=== PATIENT | female | born 1955 | race Caucasian/White ===

== ENCOUNTER → 2016-07-04 | Outpatient (CLI) | payer OTHER ==
--- NOTE | 2016-07-08 09:04 | MM ---
Reason for exam: screening (asymptomatic). Last mammogram was performed 1 year and 10 months ago. History: Patient is postmenopausal and is nulliparous. Benign left mammotome panel of the left breast, July 07, 2009. Physical Findings: A clinical breast exam by your physician is recommended on an annual basis and results should be correlated with mammographic findings. MG Screening Mammo w CAD Bilateral CC and MLO view(s) were taken. Prior study comparison: August 31, 2014, bilateral MG screening mammo w CAD. December 17, 2011, bilateral digital screening mammo w/CAD. There are scattered fibroglandular densities. Previous mammotome biopsy in the left breast. No significant changes when compared with prior studies. ASSESSMENT: Benign, BI-RAD 2 RECOMMENDATION: Routine screening mammogram of both breasts in 1 year.
== END ==
LOC: RADMAMWWP 14:33
PROVIDERS: ATTEND Family Medicine
DX: Z12.31 Encounter for screening mammogram for malignant neoplasm of breast (principal)

== ENCOUNTER → 2018-08-07 | Outpatient (CLI) | payer OTHER ==
[2018-08-07 08:36] LABS: HCT 40.3 % (34.0-46.0); HGB 13.3 gm/dL (11.4-16.0); MCH 27.7 pg (25.0-35.0); MCHC 33.1 g/dL (31.0-37.0); MCV 83.7 fL (80.0-100.0); Mean Platelet Volume 8.7; Platelet Count 239 k/uL (150-450); RBC 4.81 m/uL (3.80-5.40); RDW 14.4 % (11.5-15.5); WBC 7.3 k/uL (3.8-10.6)
--- NOTE | 2018-08-07 11:42 | XR ---
EXAMINATION TYPE: XR bone survey complete DATE OF EXAM: 08/07/2018 COMPARISON: None HISTORY: D 68.312, D 68.69, M12.9, J 45.909 2 views of the skull, frontal lateral views of the spine, frontal view of the chest, single views of the upper and lower proximal extremities, frontal view of the pelvis submitted. Degenerative disc changes are present in the visualized spine. There is no lytic or sclerotic focus s een within the images submitted. Bone mineralization may be mildly reduced. Facet arthropathy changes also noted in the cervical and lumbar spine. Chest x-ray shows a borderline increased cardiac size. IMPRESSION: No acute abnormality. Borderline cardiac size which may be accentuated by technique.
[2018-08-07 16:17] LABS: Albumin 4.5 g/dL (3.80-4.90); Albumin/Globulin Ratio 2.14 (1.60-3.17); Anion Gap 9.2 mmol/L (4.00-12.00); Calcium 9.5 mg/dL (8.7-10.3); Carbon Dioxide 28.8 mmol/L (21.6-31.8); Globulin 2.1 g/dL (1.6-3.3); LDL Cholesterol,Calculated 75.4 mg/dL (0.0-131.0); Potassium 4.6 mmol/L (3.5-5.5); Total Bilirubin 0.6 mg/dL (0.2-1.2); Total Protein 6.6 g/dL (6.2-8.2); VLDL Calculation 14.6 mg/dL (5.00-40.00)
[2018-08-07 16:27] LABS: Hepatitis C IgG Antibody Non-Reactive (Non-Reactive)
[2018-08-07 18:07] LABS: Hemoglobin A1C 5.2 % (4.0-6.0)
== END | disposition home or self-care (01) ==
LOC: LABWHC1 07:43
PROVIDERS: ATTEND Family Medicine
DX: D68.312 Antiphospholipid antibody with hemorrhagic disorder (principal); D68.69 Other thrombophilia; M12.9 Arthropathy, unspecified; J45.909 Unspecified asthma, uncomplicated; Z79.899 Other long term (current) drug therapy; Z11.59 Encounter for screening for other viral diseases; Z00.00 Encounter for general adult medical examination without abnormal findings
CPT/HCPCS: 36415; 77075; 80053; 80061; 82306; 82550; 83036; 84443; 85027; 86803

== ENCOUNTER → 2018-08-17 | Outpatient (CLI) | payer OTHER ==
--- NOTE | 2018-08-17 18:52 | BD ---
EXAMINATION TYPE: Axial Bone Density DATE OF EXAM: 08/17/2018 COMPARISON: 11/02/2003 CLINICAL HISTORY: 63-year-old female asymptomatic postmenopausal screening Height: 60.5 IN Weight: 190 LBS RISK FACTORS HISTORY OF: Active: YES Postmenopausal woman: AGE 44 MEDICATIONS: Additional Medications: MULTIVITAMIN, ADVAIR, ZYRTEC, TEDDY ASPIRIN,SINGULAIR EXAM MEASUREMENTS: Bone mineral densitometry was performed using the [employer] System. Bone mineral density as measured about the Lumbar spine is: ----- L1-L4(G/cm2): 1.214 T Score Values are as follows: ----- L2: -0.3 ----- L3: 0.8 ----- L4: 0.5 ----- L1-L4: 0.3 Bone mineral density has: Decreased -11.7% since study of: 11/02/2003 Bone mineral density about the R hip (g/cm2): 0.814 Bone mineral density about the L hip (g/cm2): 0.853 T Score values are as follows: -----R Neck: -1.6 -----L Neck: -1.3 -----R Total: -0.9 -----L Total: -0.4 Bone mineral density has: Decreased -11.9% since study of: 11/02/2003 IMPRESSION: Osteopenia (T Score between -2.5 and -1). There is slightly increased risk of fracture and the patient may be considered for treatment. Re-Screen 2-5 years. NOTE: T-SCORE=SD OF THE YOUNG ADULT MEAN.
--- NOTE | 2018-08-19 14:38 | MM ---
Reason for exam: screening (asymptomatic). Last mammogram was performed 2 years and 1 month ago. History: Patient is postmenopausal and is nulliparous. Benign left mammotome panel of the left breast, July 07, 2009. Physical Findings: A clinical breast exam by your physician is recommended on an annual basis and results should be correlated with mammographic findings. MG Screening Mammo w CAD Bilateral CC and MLO view(s) were taken. Prior study comparison: July 04, 2016, bilateral MG screening mammo w CAD. August 31, 2014, bilateral MG screening mammo w CAD. There are scattered fibroglandular densities. Previous mammotome biopsy in the left breast. No significant changes when compared with prior studies. ASSESSMENT: Benign, BI-RAD 2 RECOMMENDATION: Routine screening mammogram of both breasts in 1 year.
== END | disposition home or self-care (01) ==
LOC: RADMAMWWP 12:22
PROVIDERS: ATTEND Family Medicine
DX: Z12.31 Encounter for screening mammogram for malignant neoplasm of breast (principal); M85.80 Other specified disorders of bone density and structure, unspecified site; Z78.0 Asymptomatic menopausal state
CPT/HCPCS: 77067; 77080

== ENCOUNTER → 2018-09-25 | Outpatient (CLI) | payer OTHER ==
--- NOTE | 2018-09-25 21:39 | MR ---
EXAMINATION TYPE: MR shoulder RT wo con DATE OF EXAM: 09/25/2018 COMPARISON: None HISTORY: Pain in right shoulder CONTRAST: Performed utilizing 0 mL intravenous Gadavist gadolinium contrast. Multiplanar, multiecho imaging on a 3.0 Claudia magnet is performed through the shoulder. Long head of the biceps tendon is within the bicipital groove. Significant joint fluid is not present. Glenoid labrum appears normal where visualized on this non joint contrast study Rotator cuff tendons are evaluated. In the coronal plane there appears to be a complete tear of the supraspinatus tendon. This may be partial without retraction. Couple of linear fibers may remain inta ct. No supraspinatus muscle atrophy is evident.. The acromioclavicular junction is hypertrophied which can contribute to impingement syndrome. IMPRESSIONS: 1. Near complete supraspinatus tear with fluid surrounding residual fibers. No retraction or muscle a trophy is evident.
== END | disposition home or self-care (01) ==
LOC: RADMRIMAIN 19:35
PROVIDERS: ATTEND Orthopaedic Surgery
DX: M75.111 Incomplete rotator cuff tear or rupture of right shoulder, not specified as traumatic (principal)

== ENCOUNTER 2018-11-25 05:58 | Day surgery (SDC) | payer OTHER ==
[2018-11-20 15:14] VITALS: BMI 35.9
--- NOTE | 2018-11-24 11:26 | HP ---
HISTORY AND PHYSICAL SURGERY SCHEDULED: 11/25/2018 Amrita Vogel is a 63-year-old patient seen with progressive right shoulder pain. After having treatment options discussed with her, she elected to proceed with right shoulder arthroscopy. Consent was obtained. PAST MEDICAL HISTORY: Asthma. PAST SURGICAL HISTORY: Breast biopsy, tubal ligation, colonoscopy. DAILY MEDICATIONS: 1. Advair. 2. Aspirin. 3. ProAir. 4. Zyrtec. ALLERGIES: KEFLEX and SULFA. SOCIAL HISTORY: She denies current tobacco use. PHYSICAL EVALUATION OF THE RIGHT SHOULDER: Flexion is 160 degrees, abduction is 160 degrees, external rotation is 50 degrees with weakness, tenderness along the anterior lateral acromion and rotator cuff insertion site. Impingement sign is positive at 90 degrees. Drop-arm sign is positive. Distal neurovascular exam is intact. RIGHT SHOULDER RADIOGRAPHS: Revealed a type 2 anterior acromion, evidence for acromioclavicular joint osteoarthritis and cystic changes of the tuberosity. A right shoulder MRI revealed rotator cuff tear. IMPRESSION: 1. Right shoulder impingement with rotator cuff tear. 2. Right shoulder acromioclavicular joint osteoarthritis. 3. Asthma. PLAN: Right shoulder arthroscopy with probable arthroscopic rotator cuff repair, subacromial decompression, probable Temo procedure and debridement. MMODL / IJN: [id number] /
[~2018-11-25 05:58] MED LIST: DEXAMETHASONE SOD PHOSPHATE 10 MG/ML 1 ML VIAL IV ONE; HYDROmorphone 0.5 MG/0.5 ML SYRINGE IVP PRN; LACTATED RINGERS 1,000 ML IV SCH; LIDOCAINE 1% 20 ML VIAL (10MG/ML) FOR IV START INTRADERMA PRN; ONDANSETRON 4 MG/2 ML VIAL IVP ONE
[2018-11-25 06:23] VITALS: TEMP 97.7
[2018-11-25] MEDS ORDERED: MIDAZOLAM (PF) 2 MG/2 ML VIAL IVP ONE (07:09)
[2018-11-25] MEDS ORDERED: fentaNYL (PF) 50 MCG/ML 2 ML AMP ONE ×2 (07:23)
[2018-11-25] MEDS ORDERED: SUCCINYLCHOLINE CHLORIDE 100 MG/5 ML SYR IV ONE ×2 (07:23)
[2018-11-25] MEDS ORDERED: LIDOCAINE 1% INJ 10MG/ML (20 ML MDV) ONE ×2 (07:23)
[2018-11-25] MEDS ORDERED: PROPOFOL 10 MG/ML 20 ML VIAL IV ONE ×2 (07:23)
[2018-11-25] MEDS ORDERED: ROPIVACAINE 5 MG/ML 30 ML VIAL ONE ×2 (07:23)
--- NOTE | 2018-11-25 09:02 | P.OP ---
Date of Procedure: 11/25/18 Preoperative Diagnosis: Right shoulder impingement Postoperative Diagnosis: 1. Right shoulder rotator cuff tear 2. Right shoulder impingement 3. Right shoulder acromioclavicular joint osteoarthritis 4. Right shoulder partial long head biceps tendon 5. Right shoulder superficial labral tear Procedure(s) Performed: 1. Right shoulder arthroscopic rotator cuff repair 2. Right shoulder arthroscopic subacromial decompression 3. Right shoulder arthroscopic Temo procedure 4. Right shoulder arthroscopic biceps tenotomy 5. Right shoulder arthroscopic debridement labral tear Implants: 1Arthrex 5.5 swivel lock anchor Anesthesia: GETA, regional (Interscalene block) Surgeon: Wolf Garcia Estimated Blood Loss (ml): 5 Pathology: none sent Condition: stable Disposition: PACU Indications for Procedure: 63-year-old patient seen with progressive right shoulder pain. After options regarding treatment were discussed, she elected to proceed with arthroscopy. Operative Findings: see description of procedure Description of Procedure: Patient underwent an interscalene block by department of anesthesia for postoperative pain management. The patient was then taken to the operative suite. The patient underwent a general anesthetic by the department of anesthesia. The patient was placed into a lateral position and secured. There was appropriate padding of the bony prominence. Right shoulder was then prepped and draped in normal sterile orthopedic fashion. We placed the extremity in 10 pounds of longitudinal traction. A posterior incision was now made for a posterior working portal site. The trocar and cannula were inserted into the glenohumeral joint. Arthroscopy was initiated. Spinal needle was now inserted anteriorly, to ascertain the anterior working portal site. An incision was now made in that area, a trocar was inserted followed by a probe. There was partial tearing long head biceps tendon. There was a superficial labral tear involving the superior labrum. The remaining labrum was stable. I performed an arthroscopic biceps tenotomy. I debrided that superficial labral tear down to stable. There is stable. Utilizing the posterior working portal site, the trocar and cannula were inserted into the subacromial space. Arthroscopy initiated. I made an incision 2 fingerbreadths lateral to the acromion. I introduced my trocar followed by my [employer]Care ablator. I now began ablating thick subacromial bursal tissue, which exposed the undersurface of the anterior acromion. There was diminished subacromial space. There was a very prominent anterior acromion. A motorized bur was introduced and a subacromial decompression was performed. I also excised some osteophytes off the inferior aspect of the distal clavicle. The AC joint was visualized and noted to be fairly arthritic. The motorized bur was introduced in the anterior portal site and a Temo procedure was performed without difficulty, decompressing the AC joint nicely. I turned my attention to the rotator cuff. There was a 1-1.5 cm rotator cuff tear. I debrided the margins getting down to stable tendon tissue. I abraded the footprint with a motorized bur. With the assistance of Ahsan COWART passed 2 everted mattress sutures are good bites of rotator cuff tendon. I now punched a hole at the footprint for insertion of her anchor. All 4 limbs of suture were now passed through the eyelet of a 5.5 Arthrex swivel lock anchor. The eyelet was now placed into a pre-punch hole. Ahsan COWART tension the sutures while the eyelet in position and then he assisted with inserted our anchor with good purchase noted. All residual suture limbs were now clipped. We had good compression of the tendon along the entire footprint. I injected 1 mL Renyte intra-articular. Instruments now removed from the portal sites. All portal sites were approximated with nylon suture. Sterile dressings were applied followed by a shoulder sling. Sumanth COWART assisted in this case. The patient was awakened, transferred to a bed, and taken to recovery in stable condition.
[2018-11-25] MEDS: fentaNYL (PF) 50 MCG/ML 2 ML AMP IV PRN ×2 (09:06→09:19)
[2018-11-25] MEDS ORDERED: MORPHINE SULFATE 4 MG/ML SYRINGE IV ONE (09:41)
--- NOTE | 2018-11-25 09:46 | P.ANPRN ---
Procedure Note - Anesthesia - Nerve Block Performed Right Interscalene Time Out Performed: Yes (:) Date of Procedure: 11/25/18 Procedure Start Time: Procedure Stop Time: Location of Patient Procedure: PreOp Indication: Acute Post-Operative Pain, Requested by physician (Dr Garcia) Sedation Type: Sedate with meaningful contact maintained Preparation: Sterile Prep Position: Supine Catheter: None Needle Types: Pajunk Needle Gauge: Other (see comment) (22g) Technique: Ultrasound Injectate: 0.5% Ropivacaine (see comment for volume) (20cc) Blood Aspirated: No Pain Paresthesia on Injection Noted: No Resistance on Injection: Normal Events: Uneventful and Well Tolerated
[2018-11-25] MEDS ORDERED: HYDROcodone/APAP 5-325MG 1 EACH TAB PO ONE (10:48)
[2018-11-25 11:10] VITALS: RESP 17
[2018-11-25 11:48] VITALS: BP 126/80; PULSE 78
== END 2018-11-25 12:10 | disposition home or self-care (01) ==
LOC: OR 05:58
PROVIDERS: ATTEND Orthopaedic Surgery
DX: M75.101 Unspecified rotator cuff tear or rupture of right shoulder, not specified as traumatic (principal); M25.811 Other specified joint disorders, right shoulder; M19.011 Primary osteoarthritis, right shoulder; S46.111A Strain of muscle, fascia and tendon of long head of biceps, right arm, initial encounter; S43.491A Other sprain of right shoulder joint, initial encounter; X58.XXXA Exposure to other specified factors, initial encounter; M25.711 Osteophyte, right shoulder; J45.909 Unspecified asthma, uncomplicated; K21.9 Gastro-esophageal reflux disease without esophagitis; Z79.82 Long term (current) use of aspirin; Z79.899 Other long term (current) drug therapy; Z88.2 Allergy status to sulfonamides; Z88.1 Allergy status to other antibiotic agents; Z98.51 Tubal ligation status
CPT/HCPCS: 29827; 29826; 29824; 64415; C1713; C1765; J2270; J1100; J0690; J2405; J2001; J3010; J2795; J0330; J2704; J2250

== ENCOUNTER → 2020-06-27 | Outpatient (CLI) | payer MEDICARE ==
--- NOTE | 2020-06-27 15:58 | BD ---
EXAMINATION TYPE: Axial Bone Density DATE OF EXAM: 06/27/2020 COMPARISON: DEXA bone scan August 17, 2018 CLINICAL HISTORY: Postmenopausal female. Height: 61 Weight: 197.5 FRAX RISK QUESTIONS: Alcohol (3 or more units per day): no Family History (Parent hip fracture): no Glucocorticoids (More than 3mos): yes (Ex: prednisone, prednisolone, methylprednisolone, dexamethasone, and hydrocortisone). History of Fracture in Adulthood: no Secondary Osteoporosis: 1. Type 1 Diabetes: no 2. Hyperthyroidism: no 3. Menopause before 45: no 4. Malnutrition: no 5. Chronic liver disease: no Rheumatoid Arthritis: no Current Tobacco Use: no RISK FACTORS HISTORY OF: Surgery to Spine/Hip(right/left)/Wrist (right/left): no Family History of Osteoporosis: yes Active: yes Diet low in dairy products/other sources of calcium: no Postmenopausal woman: age 44 Lost more than 2 inches in height since high school: no MEDICATIONS: inhalers, pain meds Additional History: EXAM MEASUREMENTS: Bone mineral densitometry was performed using the [employer]. Bone mineral density as measured about the Lumbar spine is: ----- L1-L4(G/cm2): 1.184 T Score Values are as follows: ----- L2: 0.0 ----- L3: 0.4 ----- L4: 0.3 ----- L1-L4: 0.0 Bone mineral density has: decreased -1.1 % since study of: 08.17.2018 Bone mineral density about the R hip (g/cm2): 0.826 Bone mineral density about the L hip (g/cm2): 0.900 T Score values are as follows: -----R Neck: -1.5 -----L Neck: -1.0 -----R Total: -0.6 -----L Total: -0.4 Bone mineral density has: increased 2.1 % since study of: 08.17.2018 IMPRESSION: Osteopenia (T Score between -2.5 and -1) remains present. There remains slightly increased risk of fracture and the patient may be considered for treatment. Re-Screen 2-5 years. NOTE: T-SCORE=SD OF THE YOUNG ADULT MEAN.
--- NOTE | 2020-06-29 14:35 | MM ---
Reason for exam: screening (asymptomatic). Last mammogram was performed 1 year and 10 months ago. History: Patient is postmenopausal and is nulliparous. Benign left mammotome panel of the left breast, July 07, 2009. Physical Findings: A clinical breast exam by your physician is recommended on an annual basis and results should be correlated with mammographic findings. MG 3D Screening Mammo W/Cad Bilateral CC and MLO view(s) were taken. Prior study comparison: August 17, 2018, bilateral MG screening mammo w CAD. July 04, 2016, bilateral MG screening mammo w CAD. The breast tissue is heterogeneously dense. This may lower the sensitivity of mammography. Previous mammotome biopsy in the left breast. There is chronic nodularity in the right breast. No significant changes when compared with prior studies. ASSESSMENT: Benign, BI-RAD 2 RECOMMENDATION: Routine screening mammogram of both breasts in 1 year.
== END | disposition home or self-care (01) ==
LOC: RADMAMWWP 13:57
PROVIDERS: ATTEND Family Medicine
DX: Z12.31 Encounter for screening mammogram for malignant neoplasm of breast (principal); M85.88 Other specified disorders of bone density and structure, other site
CPT/HCPCS: 77063; 77067; 77080

== ENCOUNTER → 2020-06-27 | Outpatient (CLI) | payer MEDICARE ==
--- NOTE | 2020-06-27 15:17 | US ---
EXAMINATION TYPE: US kidneys/renal and bladder DATE OF EXAM: 06/27/2020 COMPARISON: Prior aortic ultrasound January 27, 2020 CLINICAL HISTORY: R31.9 Hematuria. Pt states known renal cyst, no previous at this facility EXAM MEASUREMENTS: Right Kidney: 10.0 x 4.7 x 4.6 cm Left Kidney: 11.7 x 5.4 x 4.2 cm Right Kidney: Appeared wnl, lower pole gassed out Left Kidney: Cyst mid lateral= 4.2 x 3.4 x 5.0 Bladder: wnl Bilateral Jets seen: Yes There is no evidence for hydronephrosis at this point in time. No nephrolithiasis is seen. No new c oncerning masses are identified. Persistent 4.2 cm thin-walled cyst upper to mid pole level left kidn ey slightly larger from 2010 study. The urinary bladder is satisfactorily distended. Bilateral urete ral jets are seen. IMPRESSION: Source of hematuria not identified. If Symptoms persist further investigation with CT uro gram would be warranted.
== END | disposition home or self-care (01) ==
LOC: RADUSWWP 14:01
PROVIDERS: ATTEND Family Medicine
DX: R31.9 Hematuria, unspecified (principal)
CPT/HCPCS: 76770

== ENCOUNTER → 2020-08-17 | Outpatient (CLI) | payer MEDICARE | END | disposition home or self-care (01) | LOC: LABWHC1 16:14 | PROVIDERS: ATTEND Family Medicine | DX: U07.1 COVID-19 (principal); R53.83 Other fatigue | CPT/HCPCS: U0003; C9803; U0005 ==

== ENCOUNTER 2020-08-20 12:09 | Emergency (ER) | payer MEDICARE ==
[2020-08-20 12:21] VITALS: BP 117/73; PULSE 92; TEMP 97.6
[2020-08-20 12:53] VITALS: RESP 16
--- NOTE | 2020-08-20 13:05 | ED ---
General Adult HPI - General Chief complaint: Upper Respiratory Infection Stated complaint: COVID+,Wants BAM Time Seen by Provider: 08/20/20 12:24 Source: patient Mode of arrival: ambulatory Limitations: no limitations - History of Present Illness Initial comments: Amrita 65 her old female who was sent to the emergency department today by her primary care physician for evaluation of COVID. Patient reports she received her first vaccine on August 02 as well as her . That evening they both began feeling fatigued. They attributed to the vaccine. Patient has had persistent fatigue and just feeling unwell since that time. Last weekend her tested positive for COVID, they were concerned he may be a false positive. Both of them were retested at their primary care office this Friday and were contacted today and advised that they both tested positive. Primary physician advised he be evaluated in the emergency department. - Related Data Home Medications Medication Instructions Recorded Confirmed Albuterol Sulfate [Proair Hfa] 2 puff INHALATION QID PRN 07/02/14 11/25/18 Fluticasone/Salmeterol [Advair 1 puff INHALATION RT-BID 07/02/14 11/25/18 100-50 Diskus] Ibuprofen [Motrin] 200 - 600 mg PO Q6HR PRN 07/02/14 11/20/18 Montelukast Sodium [Singulair] 10 mg PO HS 07/02/14 11/20/18 Aspirin 325 mg PO DAILY 08/11/15 11/20/18 Cetirizine HCl [Zyrtec] 10 mg PO DAILY 08/11/15 11/25/18 Hydroxychloroquine Sulfate 200 mg PO BID 08/11/15 11/20/18 [Plaquenil] Multivitamins, Thera [Multivitamin] 1 tab PO DAILY 08/11/15 11/20/18 Omeprazole [PriLOSEC] 20 mg PO AC-BRKFST PRN 08/11/15 11/20/18 Allergies Allergy/AdvReac Type Severity Reaction Status Date / Time Sulfa (Sulfonamide Allergy Rash/Hives Verified 08/20/20 12:21 Antibiotics) Review of Systems ROS Statement: Those systems with pertinent positive or pertinent negative responses have been documented in the HPI. ROS Other: All systems not noted in ROS Statement are negative. Constitutional: Reports: weakness (generalized) Respiratory: Reports: cough (mild, non-productive). Denies: dyspnea Cardiovascular: Reports: dyspnea on exertion. Denies: chest pain Endocrine: Reports: fatigue Gastrointestinal: Denies: nausea, vomiting, diarrhea Musculoskeletal: Reports: myalgia Skin: Denies: rash Neurological: Denies: headache Past Medical History Past Medical History: Asthma, GERD/Reflux, Hearing Disorder / Deafness, Pneumonia Additional Past Medical History / Comment(s): Has difficulty swallowingonce in a while, hx peripheral lower extremity edema & cellulitis 4 yrs ago. Arthritis, not sure what type. Hx pneumonia. COCOPAH left ear. History of Any Multi-Drug Resistant Organisms: None Reported Past Surgical History: Breast Surgery, Tubal Ligation Additional Past Surgical History / Comment(s): Colonoscopies, left breast biopsy. Past Anesthesia/Blood Transfusion Reactions: No Reported Reaction Past Psychological History: No Psychological Hx Reported Smoking Status: Never smoker Past Alcohol Use History: None Reported Past Drug Use History: None Reported - Past Family History Father Additional Family Medical History / Comment(s): Alheimer's disease. Mother Family Medical History: Cancer, Osteoarthritis (OA) Additional Family Medical History / Comment(s): Uterine and skin ca, fast heart rate. General Exam - General Exam Comments Initial Comments: Physical Exam GENERAL: Patient is well-developed and well-nourished. Patient is nontoxic and well- hydrated and is in no distress. HENT: Normocephalic, Atraumatic. EYES: PERRL, EOMI PULMONARY: Unlabored respirations. No audible rales rhonchi or wheezing was noted. CARDIOVASCULAR: There is a regular rate and rhythm without any murmurs gallops or rubs. ABDOMEN: Soft and nontender with normal bowel sounds. SKIN: Skin is clear with no lesions or rashes and otherwise unremarkable. : Deferred NEUROLOGIC: Patient is alert and oriented x3. Moving all extremities spontaneously MUSCULOSKELETAL: Normal extremities with adequate strength and full range of motion. No lower extremity swelling or edema. No calf tenderness. PSYCHIATRIC: Normal psychiatric evaluation. Limitations: no limitations Course Vital Signs 08/20/20 08/20/20 12:18 12:51 Temperature 97.6 F Pulse Rate 92 Respiratory 18 16 Rate Blood Pressure 117/73 O2 Sat by Pulse 100 Oximetry Medical Decision Making - Medical Decision Making The patient was seen and evaluated, history is obtained from the patient and Patient with 19 days of symptoms, tested positive for COVID-19 6 days prior patient and her both tested positive on Friday of this week Due to duration of symptoms patient is not a candidate for treatment with monoclonal antibodies Supportive care including vitamin C, vitamin D3, zinc was discussed with the claudia howard Patient was advised to obtain a pulse ox monitor her oxygen level and return to ER if it's less than 90% sign patient was advised continued 14 for an additional 10 days Patient is discharged home in stable condition Disposition Clinical Impression: COVID-19 Disposition: HOME SELF-CARE Condition: Stable Additional Instructions: Take Vitamin C, Vitamin D3 and Zinc Stay hydrated Purchase a pulse ox and monitor your oxygen, return to the ER if your oxygen is below 90% Continue to Quarantine for another 10 days Is patient prescribed a controlled substance at d/c from ED?: No Referrals: Kelsey Cutler MD [Primary Care Provider] - 1-2 days
== END 2020-08-20 13:27 | disposition home or self-care (01) ==
LOC: EC 12:09
DX: U07.1 COVID-19 (principal); J45.909 Unspecified asthma, uncomplicated; K21.9 Gastro-esophageal reflux disease without esophagitis; Z79.51 Long term (current) use of inhaled steroids; Z79.82 Long term (current) use of aspirin; Z79.899 Other long term (current) drug therapy; Z88.2 Allergy status to sulfonamides
CPT/HCPCS: 99283

== ENCOUNTER → 2021-05-07 | Outpatient (CLI) | payer MEDICARE ==
--- NOTE | 2021-05-07 11:57 | MR ---
EXAMINATION TYPE: MR brain wo/w con DATE OF EXAM: 05/07/2021 COMPARISON: None HISTORY: Acoustic Nerve Disorder, Tinnitis, hearing loss TECHNIQUE: Multiplanar, multisequence images of the brain and brainstem is performed without and with IV contras t, utilizing 9 mL intravenous Gadavist. FINDINGS: Diffusion weighted images demonstrate no evidence of a recent infarct or other diffusion ab normality. There is no extra-axial fluid collection. Scattered hyperintensities present in the periv entricular and subcortical white matter bilaterally on T2 and inversion recovery sequences, approxima tely 10-15 lesions are present The ventricular system and cisternal spaces are normal in size and hiwot earance. The brain volume is age appropriate. Wispy enhancement along the right frontal lobe is likely insurance account representative of venous angioma, coronal im ages #11 through 13, axial image #17 and 18. Midline structures demonstrate essentially normal morphology, partially empty sella changes present. No evident cerebellopontine angle mass. The craniocervical junction appears within normal limits. Po st contrast images demonstrate no abnormal enhancement at the internal auditory canals, there is symm etric appearance, small [id number] and high resolution images through the internal auditory canals are not performed. The dural venous sinuses appear patent. The visualized sinuses are showing some i nflammatory change in the bilateral maxillary sinuses, there may be mucus retention cyst or polyps, m ucosal thickening present in the ethmoid air cells, and the globes are intact. There is some inflamma tory signal change present within the mastoid air cells on the left. IMPRESSION: Sinus disease, fluid signal noted in the mastoid air cells on the left. No evident internet ecommerce specialist al auditory canal mass. Nonspecific white matter demyelination may be due to chronic small vessel isc hemia. Additional findings above.
== END | disposition home or self-care (01) ==
LOC: RADMRIMAIN 09:32
PROVIDERS: ATTEND Otolaryngology
DX: R93.0 Abnormal findings on diagnostic imaging of skull and head, not elsewhere classified (principal)
CPT/HCPCS: 70553; A9585

== ENCOUNTER → 2021-11-07 | Outpatient (CLI) | payer MEDICARE ==
--- NOTE | 2021-11-08 08:50 | MM ---
Reason for Exam: Screening (asymptomatic). Last mammogram was performed 1 year(s) and 5 month(s) ago. Patient History: Menarche at age 11. Patient has no children. Postmenopausal. 07/07/2009, Benign Core Biopsy on the left side. Risk Values: Chaparrita 5 year model risk: 2.2%. NCI Lifetime model risk: 7.6%. Prior Study Comparison: 07/04/2016 Bilateral Screening Mammogram, [facility]. 08/17/2018 Bilateral Screening Mammogram, [facility]. 06/27/2020 Bilateral Screening Mammogram, [facility]. Tissue Density: There are scattered fibroglandular densities. Findings: Analyzed By CAD. A marker is within the left breast. No suspicious groups of microcalcifications, spiculated or lobular masses, architectural distortion or other secondary signs of malignancy are mammographically apparent. Overall Assessment: Benign, BI-RAD 2 Management: Screening Mammogram of both breasts in 1 year. A negative mammogram report should not preclude additional follow up of suspicious palpable abnormalities. Patient should continue monthly self breast exam. A clinical breast exam by your physician is recommended on an annual basis and results should be correlated with mammographic findings. Electronically signed and approved by: Gutierrez Constantino D.O. Radiologis
== END | disposition home or self-care (01) ==
LOC: RADMAMWWP 13:52
PROVIDERS: ATTEND Family Medicine
DX: Z12.31 Encounter for screening mammogram for malignant neoplasm of breast (principal); Z78.0 Asymptomatic menopausal state
CPT/HCPCS: 77063; 77067

== ENCOUNTER → 2021-11-28 | Outpatient (CLI) | payer MEDICARE ==
--- NOTE | 2021-11-28 16:18 | XR ---
EXAMINATION TYPE: XR abdomen 2V DATE OF EXAM: 11/28/2021 COMPARISON: 01/23/2010 INDICATION: Abdominal bloating, pain TECHNIQUE: Single view abdomen upright view. Single supine view is obtained. FINDINGS: There is a prominent air-filled loops of small bowel in the left mid abdomen with an air-fluid level. Differential air-fluid levels are not identified. Small amount of colonic bowel gas is noted. Nonspe cific bowel gas is present. No free air is evident. Psoas margins are normal. No organomegaly is present. IMPRESSION: 1. Air-fluid level within a prominent small bowel loop. Partial mild small bowel obstruction is not e xcluded. Close follow-up is recommended.
== END | disposition home or self-care (01) ==
LOC: RADXRMAIN 08:40
PROVIDERS: ATTEND Family Medicine
DX: R14.0 Abdominal distension (gaseous) (principal); R52 Pain, unspecified
CPT/HCPCS: 74019

== ENCOUNTER 2021-11-29 12:32 | Inpatient (IN) | payer MEDICARE ==
[2021-11-29] MEDS ORDERED: SODIUM CHLORIDE 0.9% 1,000 ML IV STA ×2 (13:20)
[2021-11-29] MEDS ORDERED: HYDROmorphone 0.5 MG/0.5 ML SYRINGE IVP STA (13:20)
--- NOTE | 2021-11-29 13:23 | ED ---
Abdominal Pain HPI - General Chief Complaint: Abdominal Pain Stated Complaint: PCP sent to get CT Time Seen by Provider: 11/29/21 12:54 Source: patient, family, RN notes reviewed Mode of arrival: ambulatory Limitations: no limitations - History of Present Illness Initial Comments: 66-year-old female who presents with complaints of lower abdominal pain the past 4 days she's had chills decreased appetite no fevers or sweats. Pain is localized more now in the right lower quadrant initially was crampy and achy and generally present. She states it increases with movement of her lower extremities up bright movement. No diarrhea no constipation no nausea vomiting. The pain is 4/10 in severity at this time. MD Complaint: abdominal pain - Related Data Home Medications Medication Instructions Recorded Confirmed Albuterol Sulfate [Proair Hfa] 2 puff INHALATION RT-Q6H PRN 07/02/14 11/29/21 Fluticasone Propion/Salmeterol 1 puff INHALATION RT-DAILY 07/02/14 11/29/21 [Advair 100-50 Diskus] Montelukast Sodium [Singulair] 10 mg PO HS 07/02/14 11/29/21 Aspirin 325 mg PO DAILY 08/11/15 11/29/21 Cetirizine HCl [Zyrtec] 10 mg PO DAILY 08/11/15 11/29/21 Hydroxychloroquine Sulfate 200 mg PO DAILY 08/11/15 11/29/21 [Plaquenil] Multivitamins, Thera [Multivitamin] 1 tab PO DAILY 08/11/15 11/29/21 Calcium Carbonate [Calcium] 600 mg PO DAILY 11/29/21 11/29/21 Cholecalciferol [Vitamin D3 (10 10 mcg PO Q72H 11/29/21 11/29/21 Mcg = 400 Iu)] Meclizine [Antivert] 12.5 mg PO BID PRN 11/29/21 11/29/21 Allergies Allergy/AdvReac Type Severity Reaction Status Date / Time Sulfa (Sulfonamide Allergy Rash/Hives Verified 11/29/21 13:37 Antibiotics) Review of Systems ROS Statement: Those systems with pertinent positive or pertinent negative responses have been documented in the HPI. ROS Other: All systems not noted in ROS Statement are negative. Past Medical History Past Medical History: Asthma, GERD/Reflux, Hearing Disorder / Deafness, Pneumonia Additional Past Medical History / Comment(s): Has difficulty swallowingonce in a while, hx peripheral lower extremity edema & cellulitis 4 yrs ago. Arthritis, not sure what type. Hx pneumonia. [place] left ear. History of Any Multi-Drug Resistant Organisms: None Reported Past Surgical History: Breast Surgery, Tubal Ligation Additional Past Surgical History / Comment(s): Colonoscopies, left breast biopsy. Past Anesthesia/Blood Transfusion Reactions: No Reported Reaction Past Psychological History: No Psychological Hx Reported Smoking Status: Never smoker Past Alcohol Use History: None Reported Past Drug Use History: None Reported - Past Family History Father Additional Family Medical History / Comment(s): Alheimer's disease. Mother Family Medical History: Cancer, Osteoarthritis (OA) Additional Family Medical History / Comment(s): Uterine and skin ca, fast heart rate. General Exam - General Exam Comments Initial Comments: This is a well-developed well-nourished awake alert oriented 4 female Limitations: no limitations General appearance: alert, anxious Head exam: Present: atraumatic, normocephalic, normal inspection Eye exam: Present: normal appearance, PERRL, EOMI. Absent: scleral icterus, conjunctival injection, periorbital swelling ENT exam: Present: mucous membranes dry Neck exam: Present: normal inspection, full ROM. Absent: tenderness, meningismus, lymphadenopathy Respiratory exam: Present: normal lung sounds bilaterally. Absent: respiratory distress, wheezes, rales, rhonchi, stridor Cardiovascular Exam: Present: normal rhythm, tachycardia, normal heart sounds. Absent: systolic murmur, diastolic murmur, rubs, gallop, clicks GI/Abdominal exam: Present: soft, tenderness (Right lower quadrant tenderness palpation with some equivocal guarding), normal bowel sounds. Absent: distended, guarding, rebound, rigid, bruit, pulsatile mass Extremities exam: Present: normal inspection, full ROM, normal capillary refill. Absent: tenderness, pedal edema, joint swelling, calf tenderness Back exam: Present: normal inspection Neurological exam: Present: alert, oriented X3, CN II-XII intact Psychiatric exam: Present: normal affect, normal mood Skin exam: Present: warm, dry, intact, normal color. Absent: rash Course Vital Signs 11/29/21 11/29/21 12:40 15:11 Temperature 98.4 F 98.0 F Pulse Rate 111 H 95 Respiratory 16 20 Rate Blood Pressure 114/73 109/51 O2 Sat by Pulse 95 95 Oximetry Medical Decision Making - Medical Decision Making I did discuss findings with patient family as well as with Dr. Rouse and Dr. Betancourt patient will be admitted for inpatient evaluation and treatment started on IV antibiotics IV fluids. - Lab Data Result diagrams: 11/29/21 14:17 11/29/21 14:17 Lab Results 11/29/21 11/29/21 11/29/21 Range/Units 14:17 14:17 14:17 WBC 27.4 H (3.8-10.6) k/uL RBC 4.37 (3.80-5.40) m/uL Hgb 12.1 (11.4-16.0) gm/dL Hct 36.9 (34.0-46.0) % MCV 84.6 (80.0-100.0) fL MCH 27.7 (25.0-35.0) pg MCHC 32.8 (31.0-37.0) g/dL RDW 13.5 (11.5-15.5) % Plt Count 214 (150-450) k/uL MPV 9.5 Neutrophils % 92 % Lymphocytes % 3 % Monocytes % 3 % Eosinophils % 1 % Basophils % 0 % Neutrophils # 25.2 H (1.3-7.7) k/uL Lymphocytes # 0.8 L (1.0-4.8) k/uL Monocytes # 0.9 (0-1.0) k/uL Eosinophils # 0.1 (0-0.7) k/uL Basophils # 0.0 (0-0.2) k/uL PT 10.8 (9.0-12.0) sec INR 1.0 (<1.2) APTT 26.7 (22.0-30.0) sec Sodium 136 L (137-145) mmol/L Potassium 3.9 (3.5-5.1) mmol/L Chloride 101 (98-107) mmol/L Carbon Dioxide 23 (22-30) mmol/L Anion Gap 12 mmol/L BUN 39 H (7-17) mg/dL Creatinine 1.88 H (0.52-1.04) mg/dL Est GFR (CKD-EPI)AfAm 31 (>60 ml/min/1.73 sqM) Est GFR (CKD-EPI)NonAf 27 (>60 ml/min/1.73 sqM) Glucose 89 (74-99) mg/dL Plasma Lactic Acid Ejred (0.7-2.0) mmol/L Calcium 9.0 (8.4-10.2) mg/dL Total Bilirubin 1.0 (0.2-1.3) mg/dL AST 27 (14-36) U/L ALT 15 (4-34) U/L Alkaline Phosphatase 164 H (38-126) U/L Troponin I (0.000-0.034) ng/mL Total Protein 6.8 (6.3-8.2) g/dL Albumin 3.8 (3.5-5.0) g/dL Amylase 43 (30-110) U/L Lipase 53 (23-300) U/L 11/29/21 11/29/21 Range/Units 14:17 14:17 WBC (3.8-10.6) k/uL RBC (3.80-5.40) m/uL Hgb (11.4-16.0) gm/dL Hct (34.0-46.0) % MCV (80.0-100.0) fL MCH (25.0-35.0) pg MCHC (31.0-37.0) g/dL RDW (11.5-15.5) % Plt Count (150-450) k/uL MPV Neutrophils % % Lymphocytes % % Monocytes % % Eosinophils % % Basophils % % Neutrophils # (1.3-7.7) k/uL Lymphocytes # (1.0-4.8) k/uL Monocytes # (0-1.0) k/uL Eosinophils # (0-0.7) k/uL Basophils # (0-0.2) k/uL PT (9.0-12.0) sec INR (<1.2) APTT (22.0-30.0) sec Sodium (137-145) mmol/L Potassium (3.5-5.1) mmol/L Chloride (98-107) mmol/L Carbon Dioxide (22-30) mmol/L Anion Gap mmol/L BUN (7-17) mg/dL Creatinine (0.52-1.04) mg/dL Est GFR (CKD-EPI)AfAm (>60 ml/min/1.73 sqM) Est GFR (CKD-EPI)NonAf (>60 ml/min/1.73 sqM) Glucose (74-99) mg/dL Plasma Lactic Acid Jered 1.0 (0.7-2.0) mmol/L Calcium (8.4-10.2) mg/dL Total Bilirubin (0.2-1.3) mg/dL AST (14-36) U/L ALT (4-34) U/L Alkaline Phosphatase (38-126) U/L Troponin I <0.012 (0.000-0.034) ng/mL Total Protein (6.3-8.2) g/dL Albumin (3.5-5.0) g/dL Amylase (30-110) U/L Lipase (23-300) U/L - Radiology Data Radiology results: report reviewed (Imaging reviewed as well as report evidence of inflammatory changes around the cecum appendix not visualized cecal inflammation proximal ascending colon inflammatory response colitis Typhlitis in the differential with appendicitis.), image reviewed Disposition Clinical Impression: Abdominal pain Disposition: ADMITTED IP TO THIS [facility] Condition: Fair Referrals: Iker Pandey [Primary Care Provider] - 1-2 days Decision Date: 11/29/21 Decision Time: 16:35
[2021-11-29 14:37] LABS: Partial Thromboplastin Time 26.7 sec (22.0-30.0); Prothrombin Time 10.8 sec (9.0-12.0)
[2021-11-29 14:39] LABS: Albumin 3.8 g/dL (3.5-5.0); Potassium 3.9 mmol/L (3.5-5.1); Total Protein 6.8 g/dL (6.3-8.2)
[2021-11-29 14:57] LABS: Basophils % (A) 0 %; Eosinophils # (A) 0.1 k/uL (0-0.7); Eosinophils % (A) 1 %; HCT 36.9 % (34.0-46.0); HGB 12.1 gm/dL (11.4-16.0); Lymphocytes # (A) 0.8 k/uL (1.0-4.8); Lymphocytes % (A) 3 %; MCH 27.7 pg (25.0-35.0); MCHC 32.8 g/dL (31.0-37.0); MCV 84.6 fL (80.0-100.0); Mean Platelet Volume 9.5; Monocytes # (A) 0.9 k/uL (0-1.0); Monocytes % (A) 3 %; Neutrophils # (A) 25.2 k/uL (1.3-7.7); Neutrophils % (A) 92 %; Platelet Count 214 k/uL (150-450); RBC 4.37 m/uL (3.80-5.40); RDW 13.5 % (11.5-15.5); WBC 27.4 k/uL (3.8-10.6)
--- NOTE | 2021-11-29 15:49 | CT ---
EXAMINATION TYPE: CT abdomen pelvis wo con DATE OF EXAM: 11/29/2021 COMPARISON: None INDICATION: Severe cramping in lower abd x 4 days as well as chills and decreased apetite DLP: 592 mGycm, Automated exposure control for dose reduction was used. CONTRAST: 0 mL of Isovue 300. Study performed without Oral Contrast TECHNIQUE: Axial images were obtained from above the diaphragm to the pubic rami in the axial plane a t 5 mm thick sections. Reconstructed images are reviewed on the computer in the coronal plane. FINDINGS: Limited CT sections are obtained the lung bases. There is a calcified granuloma within the posterior left lung base. Small pericardial effusion is present.. CT ABDOMEN: Liver: Normal Spleen: Calcifications within the spleen. Pancreas: Normal Adrenal glands: The adrenal glands are normal. Gallbladder: No stones present. Kidneys: No masses are evident. There is a large cyst at the superior pole left kidney measuring 4 cm and 12 Hounsfield units. Punctate nonobstructing renal stones in the mid posterior left kidney there may be some mild malrotation of the right kidney. No cysts are present. Aorta: Normal Inferior vena cava: Normal. CT PELVIS: Significant inflammatory changes are surrounding the region of the cecum. The appendix is not identif ied. Correlate for acute appendicitis. Other etiologies could be considered such as tinnitus. Colitis could be considered. This study is performed without oral contrast. Appendix: Not visualized. Inflammatory changes are present. Correlate for acute appendicitis. Urinary bladder: Normal. Genitourinary structures: Uterus and adnexa appear normal. Osseous structures: No suspicious lytic or sclerotic lesions are evident. IMPRESSIONS: 1. Significant inflammatory changes surrounding the cecum and proximal ascending colon. The appendix is not identified. Correlate for acute appendicitis. Typhlitis and colitis could be considered withi n the differential. 2. Left renal cyst. 3. Nonobstructing left renal stones. 4. Cholelithiasis
[2021-11-29] MEDS ORDERED: PIPERACILLIN-TAZOBACTAM 3.375 GM in SODIUM CHLORIDE 0.9% 100 ML IVPB STA (16:19)
[2021-11-29] MEDS ORDERED: NALOXONE 0.4 MG/ML 1 ML VIAL IV PRN (16:35)
[2021-11-29] MEDS ORDERED: ALBUTEROL HFA INHALER INHALATION PRN (16:37)
[2021-11-29] MEDS: SODIUM CHLORIDE 0.9% 1,000 ML IV SCH ×2 (16:48→23:59)
[2021-11-29] MEDS: HYDROmorphone 1 MG/ML 1 ML SYRINGE IVP PRN ×2 (16:51→22:52)
--- NOTE | 2021-11-29 16:57 | P.HPIM ---
History of Present Illness H&P Date: 11/29/21 Chief Complaint: Abdominal pain Patient is a 66-year-old female with a past medical history of asthma, unspecified connective tissue disorder who was sent to the ED by her PCP for a CT abdomen. Patient saw her PCP today because she has been having abdominal pain ongoing for 3-4 days. Patient says that the pain is mainly in her right lower quadrant and radiates across the lower abdomen. Patient states that the pain currently is a 4 out of 10. She describes it as a crampy. She reports that it is worse with movement. Patient was given Dilaudid once in the ED after which she reports some improvement. Patient states that she has a low appetite. She denies any diarrhea or constipation or nausea or vomiting. She also denies any fever or chills. In the ED patient's vital signs are stable. Her labs showed elevated WBC count. Patient's CT abdomen and pelvis showed inflammation in the cecum and ascending colon and appendix could not be well visualized. Surgery control panel assembler was contacted and recommended admission to medical service. Review of Systems 10 ROS reviewed and are negative except as noted in HPI Past Medical History Past Medical History: Asthma, GERD/Reflux, Hearing Disorder / Deafness, Pneumonia Additional Past Medical History / Comment(s): Has difficulty swallowingonce in a while, hx peripheral lower extremity edema & cellulitis 4 yrs ago. Arthritis, not sure what type. Hx pneumonia. [place] left ear. History of Any Multi-Drug Resistant Organisms: None Reported Past Surgical History: Breast Surgery, Tubal Ligation Additional Past Surgical History / Comment(s): Colonoscopies, left breast biopsy. Past Anesthesia/Blood Transfusion Reactions: No Reported Reaction Past Psychological History: No Psychological Hx Reported Smoking Status: Never smoker Past Alcohol Use History: None Reported Past Drug Use History: None Reported - Past Family History Father Additional Family Medical History / Comment(s): Alheimer's disease. Mother Family Medical History: Cancer, Osteoarthritis (OA) Additional Family Medical History / Comment(s): Uterine and skin ca, fast heart rate. Medications and Allergies Home Medications Medication Instructions Recorded Confirmed Type Albuterol Sulfate [Proair Hfa] 2 puff INHALATION RT-Q6H PRN 07/02/14 11/29/21 History Fluticasone Propion/Salmeterol 1 puff INHALATION RT-DAILY 07/02/14 11/29/21 History [Advair 100-50 Diskus] Montelukast Sodium [Singulair] 10 mg PO HS 07/02/14 11/29/21 History Aspirin 325 mg PO DAILY 08/11/15 11/29/21 History Cetirizine HCl [Zyrtec] 10 mg PO DAILY 08/11/15 11/29/21 History Hydroxychloroquine Sulfate 200 mg PO DAILY 08/11/15 11/29/21 History [Plaquenil] Multivitamins, Thera [Multivitamin] 1 tab PO DAILY 08/11/15 11/29/21 History Calcium Carbonate [Calcium] 600 mg PO DAILY 11/29/21 11/29/21 History Cholecalciferol [Vitamin D3 (10 10 mcg PO Q72H 11/29/21 11/29/21 History Mcg = 400 Iu)] Meclizine [Antivert] 12.5 mg PO BID PRN 11/29/21 11/29/21 History Allergies Allergy/AdvReac Type Severity Reaction Status Date / Time Sulfa (Sulfonamide Allergy Rash/Hives Verified 11/29/21 13:37 Antibiotics) Physical Exam Osteopathic Statement: *. No significant issues noted on an osteopathic structural exam other than those noted in the History and Physical/Consult. Vitals: Vital Signs Temp Pulse Resp BP Pulse Ox 11/29/21 15:11 98.0 F 95 20 109/51 95 11/29/21 12:40 98.4 F 111 H 16 114/73 95 Intake and Output 11/29/21 11/29/21 11/29/21 06:59 14:59 22:59 Other: Weight 77.111 kg General: [Alert and oriented, well nourished, patient in distress due to pain]. Eye: [PERRL, EOMI, normal conjunctiva]. HENT: [Normocephalic, clear tympanic membranes, normal hearing, dry oral mucosa, no scleral icterus, no sinus tenderness]. Neck: [Supple, non-tender, no carotid bruits, no JVD, no lymphadenopathy]. Lungs: [Clear to auscultation and percussion, non-labored respiration]. Heart: [Normal rate, regular rhythm, no murmur, gallop or edema]. Abdomen: [Soft, tenderness to palpate in the right lower quadrant, non- distended, normal bowel sounds, no masses]. Musculoskeletal: [Normal range of motion and strength, no tenderness or swelling]. Skin: [Skin is warm, dry and pink, no rashes or lesions]. Neurologic: [Awake, alert, and oriented X3, CN II-XII intact]. Psychiatric: [Cooperative, appropriate mood and affect]. Results CBC & Chem 7: 11/29/21 14:17 11/29/21 14:17 Labs: Abnormal Lab Results - Last 24 Hours (Table) 11/29/21 11/29/21 Range/Units 14:17 14:17 WBC 27.4 H (3.8-10.6) k/uL Neutrophils # 25.2 H (1.3-7.7) k/uL Lymphocytes # 0.8 L (1.0-4.8) k/uL Sodium 136 L (137-145) mmol/L BUN 39 H (7-17) mg/dL Creatinine 1.88 H (0.52-1.04) mg/dL Alkaline Phosphatase 164 H (38-126) U/L Assessment and Plan Assessment: Sepsis likely source is colitis versus appendicitis -Patient on admission has leukocytosis and tachycardia -Patient has been given fluid boluses 30 mL/kg. We'll resume aggressive fluids at 130 mL an hour -Patient also given IV Zosyn which we will resume -We'll obtain blood cultures: Not completed in the ED so will be given after antibiotics. -Lactic acid is within normal limits and blood pressure is normotensive -Trend CBC Right lower quadrant abdominal pain secondary to colitis versus appendicitis -Consult general surgery -Keep patient nothing by mouth -Pain control with IV Dilaudid Acute kidney injury secondary decreased by mouth intake -Resume IV fluids -Trend BMP Asthma -Stable -Albuterol inhaler as needed and Advair Unspecified connective tissue disorder -Hold hydroxychloroquine in the setting of sepsis CODE STATUS:full code DVT prophylaxis: Subcu heparin Discussed with: Patient, ER, rn Anticipated length of stay > than [address]: home A total of 75 minutes was spent on the care of this complex patient more than 50% of the time was spent in counseling and care coordination.
[2021-11-29] MEDS: HEPARIN SODIUM,PORCINE/PF 5,000 UNIT/0.5 ML SYRINGE SQ SCH ×2 (18:22→23:54)
[2021-11-29 19:40] LABS: Appearance,Urine Cloudy (Clear); Bilirubin,Urine Negative (Negative); Blood,Urine Moderate (Negative); Calcium Oxalate Crystals,Urine Occasional /hpf; Color,Urine Yellow; Glucose,Urine (UA) Negative (Negative); Ketones,Urine 1+ (Negative); Leukocyte Esterase,Urine Large (Negative); Mucus,Urine Rare /hpf; Nitrite,Urine Negative (Negative); Protein,Urine Trace (Negative); RBC,Urine 8 /hpf (0-5); Specific Gravity,Urine 1.021 (1.001-1.035); Squamous Epithelial Cell,Urine 2 /hpf (0-4); Urobilinogen,Urine <2.0 mg/dL (<2.0); WBC,Urine 74 /hpf (0-5)
[2021-11-29] MEDS: ONDANSETRON 4 MG/2 ML VIAL IVP PRN (22:53)
[2021-11-29] MEDS: PIPERACILLIN-TAZOBACTAM 3.375 GM in SODIUM CHLORIDE 0.9% 100 ML IVPB SCH (23:53)
[2021-11-30] MEDS: HYDROmorphone 1 MG/ML 1 ML SYRINGE IVP PRN ×4 (04:18→22:11)
[2021-11-30] MEDS: HEPARIN SODIUM,PORCINE/PF 5,000 UNIT/0.5 ML SYRINGE SQ SCH ×3 (07:28→22:41)
[2021-11-30] MEDS: PIPERACILLIN-TAZOBACTAM 3.375 GM in SODIUM CHLORIDE 0.9% 100 ML IVPB SCH ×4 (07:28→23:03)
[2021-11-30] MEDS: SYMBICORT 80-4.5 MCG INHALER INHALATION SCH ×2 (08:27→21:10)
[2021-11-30] MEDS: SODIUM CHLORIDE 0.9% 1,000 ML IV SCH ×2 (09:16→15:46)
[2021-11-30 10:48] LABS: HCT 34.3 % (37.2-46.3); HGB 10.1 g/dL (12.0-15.0); MCH 26.2 pg (27.0-32.0); MCHC 29.4 g/dL (32.0-37.0); MCV 89.1 fL (80.0-97.0); NRBC Per 100 WBC 0 /100 WBCS (0.0-0.0); Platelet Count 191 X 10*3/uL (140-440); RBC 3.85 X 10*6/uL (4.10-5.20); RDW 14.1 % (11.5-14.5); WBC 22.74 X 10*3/uL (4.50-10.00)
--- NOTE | 2021-11-30 11:45 | P.PN ---
Subjective Progress Note Date: 11/30/21 Patient states that she still having pain in her right lower quadrant. She states that she also feels thirsty and is wondering when she can start eating and drinking. Patient says that she has still not seen the general surgeon. Objective - Vital Signs Vital signs: Vital Signs Temp 99.0 F 11/30/21 07:20 Pulse 96 11/30/21 07:20 Resp 18 11/30/21 07:20 BP 100/58 11/30/21 07:20 Pulse Ox 95 11/30/21 07:20 FiO2 Intake & Output 11/29/21 11/30/21 11/30/21 18:59 06:59 18:59 Weight 77.111 kg Other: # Voids 2 - Exam General examination - Alert and Oriented 3 in NAD Heart - + S1S2 no murmurs Lungs - Clear to auscultation Abdomen soft tenderness to palpate in the right lower quadrant ND +ve BS Extremities - No edema FLIGHT/TRANSPORT NURSE - Moving all 4 extremities spontaneously Psych - Calm and cooperative - Labs CBC & Chem 7: 11/30/21 06:16 11/29/21 14:17 Labs: Abnormal Lab Results - Last 24 Hours (Table) 11/29/21 11/29/21 11/29/21 Range/Units 14:17 14:17 19:26 WBC 27.4 H (3.8-10.6) k/uL RBC (4.10-5.20) X 10*6/uL Hgb (12.0-15.0) g/dL Hct (37.2-46.3) % MCH (27.0-32.0) pg MCHC (32.0-37.0) g/dL Neutrophils # 25.2 H (1.3-7.7) k/uL Lymphocytes # 0.8 L (1.0-4.8) k/uL Sodium 136 L (137-145) mmol/L BUN 39 H (7-17) mg/dL Creatinine 1.88 H (0.52-1.04) mg/dL Alkaline Phosphatase 164 H (38-126) U/L Urine Appearance Cloudy H (Clear) Urine Protein Trace H (Negative) Urine Ketones 1+ H (Negative) Urine Blood Moderate H (Negative) Ur Leukocyte Esterase Large H (Negative) Urine RBC 8 H (0-5) /hpf Urine WBC 74 H (0-5) /hpf Calcium Oxalate Crystal Occasional H (None) /hpf Urine Mucus Rare H (None) /hpf 11/30/21 Range/Units 06:16 WBC 22.74 H (3.8-10.6) k/uL RBC 3.85 L (4.10-5.20) X 10*6/uL Hgb 10.1 L (12.0-15.0) g/dL Hct 34.3 L (37.2-46.3) % MCH 26.2 L (27.0-32.0) pg MCHC 29.4 L (32.0-37.0) g/dL Neutrophils # (1.3-7.7) k/uL Lymphocytes # (1.0-4.8) k/uL Sodium (137-145) mmol/L BUN (7-17) mg/dL Creatinine (0.52-1.04) mg/dL Alkaline Phosphatase (38-126) U/L Urine Appearance (Clear) Urine Protein (Negative) Urine Ketones (Negative) Urine Blood (Negative) Ur Leukocyte Esterase (Negative) Urine RBC (0-5) /hpf Urine WBC (0-5) /hpf Calcium Oxalate Crystal (None) /hpf Urine Mucus (None) /hpf Microbiology - Last 24 Hours (Table) 11/29/21 19:26 Urine Culture - Preliminary Urine,Clean Catch Assessment and Plan Assessment: Sepsis likely source is colitis versus appendicitis -Patient on admission has leukocytosis and tachycardia -Leukocytosis is improving -Patient also given IV Zosyn which we will resume -Follow up blood cultures -Lactic acid is within normal limits and blood pressure is normotensive -Trend CBC Right lower quadrant abdominal pain secondary to colitis versus appendicitis -Consult general surgery -Keep patient nothing by mouth -Pain control with IV Dilaudid Acute kidney injury secondary decreased by mouth intake -Resume IV fluids -Trend BMP. morning is pending Asthma -Stable -Albuterol inhaler as needed and Advair Unspecified connective tissue disorder -Hold hydroxychloroquine in the setting of sepsis CODE STATUS:full code DVT prophylaxis: Subcu heparin Discussed with: Patient, ER, rn Anticipated length of stay > than [address]: home A total of 75 minutes was spent on the care of this complex patient more than 50% of the time was spent in counseling and care coordination.
[2021-11-30 11:47] LABS: Basophils # (A) 0.03 X 10*3/uL (0.00-0.10); Basophils % (A) 0.1 %; Eosinophils # (A) 0.01 X 10*3/uL (0.04-0.35); Eosinophils % (A) 0 %; Immature Grans, Automated 0.5 %; Lymphocytes # (A) 1.23 X 10*3/uL (0.90-5.00); Lymphocytes % (A) 5.4 %; Monocytes # (A) 1.13 X 10*3/uL (0.20-1.00); Neutrophils # (A) 20.23 X 10*3/uL (1.80-7.70)
[2021-11-30 11:48] LABS: RBC Morphology NORMAL
[2021-11-30 11:57] LABS: African American GFR (CKD) 49.2 (60.0-200.0); Anion Gap 16.9 mmol/L (10.00-18.00); BUN/Creat Ratio 22.54 Ratio (12.00-20.00); Blood Urea Nitrogen 29.3 mg/dL (9.0-27.0); Calcium 8.6 mg/dL (8.7-10.3); Carbon Dioxide 18.1 mmol/L (20.0-27.5); Non-African American GFR(CKD) 42.4 (60.0-200.0); Potassium 3.9 mmol/L (3.5-5.5)
--- NOTE | 2021-11-30 16:18 | P.GSCN ---
History of Present Illness Consult date: 11/30/21 Reason for Consult: Progressive abdominal pain, leukocytosis, abnormal computed tomography scan of abdomen and pelvis showing inflammation of the ascending colon History of present illness: Patient is a 66-year-old lady who presented to [facility] emergency department on 11/29/2021, she was seen by the emergency room physician at around 1:00 in the afternoon. She presented with complaints of a 1 week history of progressive abdominal pain and subjective fever and chills. She denies discrete nausea or vomiting no change in bowel habits. She tells me that things started out as a sensation of abdominal distention and bloating, she thought she may have overeaten. She saw her primary care and it was felt that she is something that disagreed with her. The sensation of distention persisted and she had progressive predominantly lower and diffuse abdominal pains that the eventually came to rest in the right lower quadrant with attended alternating fever and chills. Pain was exacerbated with movement and position changes. She tells me that they are car ride to the hospital was quite uncomfortable for her. She tells me that at this point her pain at rest has improved but she still has exacerbations with any movement. She is feeling thirsty. Prior to a week ago she hadn't really had these sorts of pains. She has no known personal history of inflammatory bowel disease, no known family history of colon cancer or colon polyps quadrant surgical resection. No previous abdominal surgeries. She is maintained on low-dose aspirin, she tells me she is high risk for blood clots because of a positive ADELINE titer. She is treated with hydroxychloroquine for an unspecified connective tissue disorder. She has no known personal history of heart attack, DVT or pulmonary embolus. She tells me at one point someone had suspected that she been suffering with "mini strokes," but a neurologist told her that they did not suspect any history of stroke. Laboratory studies showed a markedly leukocytosis on presentation at 27.4 thousand which is trended down slightly to 22.7 thousand today, left shift is present. Presenting hemoglobin was 12.1, is trended down to 10 with IV fluids. Platelet count today is acceptable at 191. Metabolic panel today shows low CO2 at 18.1, creatinine down to 1.3 from 1.8 on presentation. GFR is a bit low at 42.4. Liver function studies on presentation were essentially normal with the exception of a mild elevation of alkaline phosphatase to 164. Amylase and lipase were normal range. Venous lactate on presentation was acceptable at 1.0. Urinalysis was positive for UTI, culture and sensitivity are pending. Computed tomography scan of the abdomen and pelvis was obtained in the emergency department, official report describes inflammation about the cecum without visualization of the appendix, consideration for typhlitis and acute appendicitis was suggested. When I review the images, particularly on the coronal and sagittal views it looks like there is a small contained extraluminal fluid collection with a bit of associated air adjacent to the cecum opposed to the right paracolic gutter with regional inflammatory changes suggestive of a perforation with developing abscess. I would agree that the appendix is not well delineated, my underlying suspicion is this relates to a ruptured appendicitis. She was subsequently admitted to the medical service and started on broad-spectrum antibiotics with Zosyn. Patient has history of colonoscopy with Dr. Samson around a year ago, patient recalls no abnormal findings. Surgeon on-call recommended consultation with an alternative group, I was notified of the patient around 40 minutes prior to my arrival to see the patient. Review of Systems All systems: negative - Constitutional Reports as per HPI, Reports chills, Reports fever Past Medical History Past Medical History: Asthma, GERD/Reflux, Hearing Disorder / Deafness, Pneumonia Additional Past Medical History / Comment(s): Has difficulty swallowingonce in a while, hx peripheral lower extremity edema & cellulitis 4 yrs ago. Arthritis, not sure what type. Hx pneumonia. KEWEENAW left ear. History of Any Multi-Drug Resistant Organisms: None Reported Past Surgical History: Breast Surgery, Tubal Ligation Additional Past Surgical History / Comment(s): Colonoscopies, left breast biopsy. Past Anesthesia/Blood Transfusion Reactions: No Reported Reaction Past Psychological History: No Psychological Hx Reported Smoking Status: Never smoker Past Alcohol Use History: None Reported Past Drug Use History: None Reported - Past Family History Father Additional Family Medical History / Comment(s): Alheimer's disease. Mother Family Medical History: Cancer, Osteoarthritis (OA) Additional Family Medical History / Comment(s): Uterine and skin ca, fast heart rate. Medications and Allergies Home Medications Medication Instructions Recorded Confirmed Type Albuterol Sulfate [Proair Hfa] 2 puff INHALATION RT-Q6H PRN 07/02/14 11/29/21 History Fluticasone Propion/Salmeterol 1 puff INHALATION RT-DAILY 07/02/14 11/29/21 History [Advair 100-50 Diskus] Montelukast Sodium [Singulair] 10 mg PO HS 07/02/14 11/29/21 History Aspirin 325 mg PO DAILY 08/11/15 11/29/21 History Cetirizine HCl [Zyrtec] 10 mg PO DAILY 08/11/15 11/29/21 History Hydroxychloroquine Sulfate 200 mg PO DAILY 08/11/15 11/29/21 History [Plaquenil] Multivitamins, Thera [Multivitamin] 1 tab PO DAILY 08/11/15 11/29/21 History Calcium Carbonate [Calcium] 600 mg PO DAILY 11/29/21 11/29/21 History Cholecalciferol [Vitamin D3 (10 10 mcg PO Q72H 11/29/21 11/29/21 History Mcg = 400 Iu)] Meclizine [Antivert] 12.5 mg PO BID PRN 11/29/21 11/29/21 History Allergies Allergy/AdvReac Type Severity Reaction Status Date / Time Sulfa (Sulfonamide Allergy Rash/Hives Verified 11/29/21 13:37 Antibiotics) Surgical - Exam Osteopathic Statement: *. No significant issues noted on an osteopathic structural exam other than those noted in the History and Physical/Consult. Vital Signs Temp Pulse Resp BP Pulse Ox 98.4 F 111 H 16 114/73 95 11/29/21 12:40 11/29/21 12:40 11/29/21 12:40 11/29/21 12:40 11/29/21 12:40 - General well developed, well nourished, no distress - Eyes PERRL, normal ocular movement - ENT normal pinna, normal nares, normal mucosa, no congestion - Neck no masses, trachea midline, no lymphadectomy, no venous distension - Respiratory normal expansion, normal respiratory effort, clear to auscultation - Cardiovascular Rhythm: regular - Abdomen There is focal tenderness with rebound over McBurney's point in the right lower quadrant, faint positive Rovsing sign, positive psoas sign on the right. There is voluntary guarding over the area of tenderness. Abdomen: soft Hernia: none - Integumentary no rash, no abnormal pigmentation - Neurologic normal coordination, normal sensation - Psychiatric oriented to time, oriented to person, oriented to place, speech is normal, memory intact Results - Labs 11/30/21 06:16 11/30/21 06:16 Abnormal Lab Results - Last 24 Hours (Table) 11/29/21 11/30/21 11/30/21 Range/Units 19:26 06:16 06:16 WBC 22.74 H (4.50-10.00) X 10*3/uL RBC 3.85 L (4.10-5.20) X 10*6/uL Hgb 10.1 L (12.0-15.0) g/dL Hct 34.3 L (37.2-46.3) % MCH 26.2 L (27.0-32.0) pg MCHC 29.4 L (32.0-37.0) g/dL Immature Gran # 0.11 H (0.00-0.04) X 10*3/uL Neutrophils # 20.23 H (1.80-7.70) X 10*3/uL Monocytes # 1.13 H (0.20-1.00) X 10*3/uL Eosinophils # 0.01 L (0.04-0.35) X 10*3/uL Carbon Dioxide 18.1 L (20.0-27.5) mmol/L BUN 29.3 H (9.0-27.0) mg/dL Est GFR (CKD-EPI)AfAm 49.2 L (60.0-200.0) Est GFR (CKD-EPI)NonAf 42.4 L (60.0-200.0) BUN/Creatinine Ratio 22.54 H (12.00-20.00) Ratio Glucose 62 L (70-110) mg/dL Calcium 8.6 L (8.7-10.3) mg/dL Urine Appearance Cloudy H (Clear) Urine Protein Trace H (Negative) Urine Ketones 1+ H (Negative) Urine Blood Moderate H (Negative) Ur Leukocyte Esterase Large H (Negative) Urine RBC 8 H (0-5) /hpf Urine WBC 74 H (0-5) /hpf Calcium Oxalate Crystal Occasional H (None) /hpf Urine Mucus Rare H (None) /hpf Microbiology - Last 24 Hours (Table) 11/29/21 19:26 Urine Culture - Preliminary Urine,Clean Catch Diabetes panel 11/30/21 Range/Units 06:16 Sodium 140 (135-145) mmol/L Potassium 3.9 (3.5-5.5) mmol/L Chloride 105 (96-109) mmol/L Carbon Dioxide 18.1 L (20.0-27.5) mmol/L BUN 29.3 H (9.0-27.0) mg/dL Creatinine 1.3 (0.6-1.5) mg/dL Glucose 62 L (70-110) mg/dL Calcium 8.6 L (8.7-10.3) mg/dL Calcium panel 11/30/21 Range/Units 06:16 Calcium 8.6 L (8.7-10.3) mg/dL Pituitary panel 11/30/21 Range/Units 06:16 Sodium 140 (135-145) mmol/L Potassium 3.9 (3.5-5.5) mmol/L Chloride 105 (96-109) mmol/L Carbon Dioxide 18.1 L (20.0-27.5) mmol/L BUN 29.3 H (9.0-27.0) mg/dL Creatinine 1.3 (0.6-1.5) mg/dL Glucose 62 L (70-110) mg/dL Calcium 8.6 L (8.7-10.3) mg/dL Adrenal panel 11/30/21 Range/Units 06:16 Sodium 140 (135-145) mmol/L Potassium 3.9 (3.5-5.5) mmol/L Chloride 105 (96-109) mmol/L Carbon Dioxide 18.1 L (20.0-27.5) mmol/L BUN 29.3 H (9.0-27.0) mg/dL Creatinine 1.3 (0.6-1.5) mg/dL Glucose 62 L (70-110) mg/dL Calcium 8.6 L (8.7-10.3) mg/dL - Imaging CT scan - abdomen: report reviewed, image reviewed Assessment and Plan Assessment: 66-year-old lady with clinical history, physical exam, laboratory findings, and imaging findings that in my mind most relate to acute appendicitis with contained rupture and early abscess formation. This would correlate well with her pronounced leukocytosis with left shift. She doesn't have a medical history that would take us down the road for typhlitis. She doesn't have symptoms of chronic abdominal pain, change in bowel habits or GI bleeding that would strongly implicate inflammatory bowel disease. She had a colonoscopy performed within the past year reportedly with no findings of concern. I suspect that she is relatively hypotensive with a systolic blood pressure of 109/66, she is been mounding intermittent low-grade fever tachycardia has improved with hydration. On appropriate initial antibiotic coverage. Signs of UTI on urinalysis. Plan: Options for treatment were discussed with the patient. I am somewhat convinced that there is a developing abscess adjacent to the cecum on close review of the images, it doesn't look yet well-developed enough to accept a percutaneous drain. In this setting we can go one of 2 directions. Exploratory laparoscopy with potential for drain placement of failure fluid collection is entirely purulent versus potential need for resection and possible ostomy if there is evidence of feculent drainage. Alternatively we could keep her on IV antibiotics, nothing by mouth with IV fluids and anticipate a follow-up CT and around 48 hours to see if this fluid collection has developed enough to warrant image guided percutaneous drainage. If there ends up being an abscess there, interval surgical exploration could be considered at 6-8 weeks and hopefully eliminate need for more aggressive surgery. It sounds like the patient favors the second option. We'll continue to follow patient closely. If she has clinical decline or worsening pain may need to change our approach. Images were reviewed with the interventional radiologist, Dr. Arroyo and he is in agreement with my interpretation of the images and in agreement with this plan. I discussed my findings with the admitting physician and we are in agreement with this initial course of action. Time with Patient: Greater than 30
[2021-12-01] MEDS: SODIUM CHLORIDE 0.9% 1,000 ML IV SCH ×2 (04:21→11:21)
[2021-12-01] MEDS: HEPARIN SODIUM,PORCINE/PF 5,000 UNIT/0.5 ML SYRINGE SQ SCH ×3 (07:49→23:43)
[2021-12-01] MEDS: HYDROmorphone 1 MG/ML 1 ML SYRINGE IVP PRN ×4 (08:00→23:44)
[2021-12-01] MEDS: PIPERACILLIN-TAZOBACTAM 3.375 GM in SODIUM CHLORIDE 0.9% 100 ML IVPB SCH ×3 (08:15→23:43)
[2021-12-01] MEDS: SYMBICORT 80-4.5 MCG INHALER INHALATION SCH ×2 (08:30→19:57)
[2021-12-01 09:11] LABS: Basophils # (A) 0.03 X 10*3/uL (0.00-0.10); Basophils % (A) 0.2 %; Eosinophils # (A) 0.04 X 10*3/uL (0.04-0.35); Eosinophils % (A) 0.2 %; HCT 32.7 % (37.2-46.3); HGB 9.5 g/dL (12.0-15.0); Immature Grans, Automated 0.6 %; Lymphocytes # (A) 1.01 X 10*3/uL (0.90-5.00); Lymphocytes % (A) 6.3 %; MCHC 29.1 g/dL (32.0-37.0); MCV 89.6 fL (80.0-97.0); Mean Platelet Volume 11.9 fL (9.5-12.2); Monocytes # (A) 1.05 X 10*3/uL (0.20-1.00); Monocytes % (A) 6.5 %; NRBC Per 100 WBC 0 /100 WBCS (0.0-0.0); Neutrophils # (A) 13.94 X 10*3/uL (1.80-7.70); Neutrophils % (A) 86.2 %; Platelet Count 229 X 10*3/uL (140-440); RBC 3.65 X 10*6/uL (4.10-5.20); RDW 14.2 % (11.5-14.5); WBC 16.16 X 10*3/uL (4.50-10.00)
[2021-12-01 09:14] LABS: African American GFR (CKD) 67.5 (60.0-200.0); Anion Gap 13.1 mmol/L (10.00-18.00); BUN/Creat Ratio 20.1 Ratio (12.00-20.00); Blood Urea Nitrogen 20.1 mg/dL (9.0-27.0); Calcium 8.3 mg/dL (8.7-10.3); Carbon Dioxide 19.9 mmol/L (20.0-27.5); Non-African American GFR(CKD) 58.2 (60.0-200.0)
--- NOTE | 2021-12-01 12:24 | P.PN ---
Subjective Progress Note Date: 12/01/21 Patient says that she still having abdominal pain in her right lower quadrant. She is denying any fever chills nausea vomiting Objective - Vital Signs Vital signs: Vital Signs Temp 98.1 F 12/01/21 11:01 Pulse 91 12/01/21 07:00 Resp 18 12/01/21 07:54 BP 111/67 12/01/21 07:00 Pulse Ox 96 12/01/21 11:01 FiO2 Intake & Output 11/30/21 12/01/21 12/01/21 18:59 06:59 18:59 Other: Voiding Method Bedside Commode Bedside Commode # Voids 1 2 1 - Exam General examination - Alert and Oriented 3 in NAD Heart - + S1S2 no murmurs Lungs - Clear to auscultation Abdomen soft, tenderness to palpate in the right lower quadrant ND +ve BS Extremities - No edema DIRECTOR ASSET - Moving all 4 extremities spontaneously Psych - Calm and cooperative - Labs CBC & Chem 7: 12/01/21 03:24 12/01/21 03:24 Labs: Abnormal Lab Results - Last 24 Hours (Table) 12/01/21 12/01/21 Range/Units 03:24 03:24 WBC 16.16 H (4.50-10.00) X 10*3/uL RBC 3.65 L (4.10-5.20) X 10*6/uL Hgb 9.5 L (12.0-15.0) g/dL Hct 32.7 L (37.2-46.3) % MCH 26.0 L (27.0-32.0) pg MCHC 29.1 L (32.0-37.0) g/dL Immature Gran # 0.09 H (0.00-0.04) X 10*3/uL Neutrophils # 13.94 H (1.80-7.70) X 10*3/uL Monocytes # 1.05 H (0.20-1.00) X 10*3/uL Chloride 112 H (96-109) mmol/L Carbon Dioxide 19.9 L (20.0-27.5) mmol/L Est GFR (CKD-EPI)NonAf 58.2 L (60.0-200.0) BUN/Creatinine Ratio 20.10 H (12.00-20.00) Ratio Glucose 65 L (70-110) mg/dL Calcium 8.3 L (8.7-10.3) mg/dL Microbiology - Last 24 Hours (Table) 11/29/21 16:15 Blood Culture - Preliminary Blood No Growth after 24 hours 11/29/21 16:00 Blood Culture - Preliminary Blood No Growth after 24 hours 11/29/21 19:26 Urine Culture - Final Urine,Clean Catch Assessment and Plan Assessment: Sepsis likely source is colitis with possible perforated colon/appendix and abscess -Patient on admission has leukocytosis and tachycardia -Leukocytosis is improving -Resume IV Zosyn -Follow up blood cultures -Lactic acid is within normal limits and blood pressure is normotensive -Trend CBC -> WBC trending down -UA indicated UTI however urine culture negative so UTI ruled out Right lower quadrant abdominal pain Per computed tomography scan could be colitis General surgery review computed tomography scan and believes patient may have colitis with possible perforated colon/appendix and abscess -Per general surgery will repeat computed tomography scan tomorrow and determine if patient is a candidate for CT guided aspiration versus surgery -Gen. surgery on board -Diet as per surgery. Patient currently nothing by mouth so we'll start the patient on D5 normal saline -Pain control with IV Dilaudid Acute kidney injury secondary decreased by mouth intake -Resume IV fluids -Resolved Asthma -Stable -Albuterol inhaler as needed and Advair Unspecified connective tissue disorder -Hold hydroxychloroquine in the setting of sepsis CODE STATUS:full code DVT prophylaxis: Subcu heparin Anticipated length of stay > than [address]: home
[2021-12-01] MEDS: DEXTROSE 5%-0.9% NACL 1,000 ML IV SCH (12:55)
--- NOTE | 2021-12-01 17:23 | P.PN ---
Subjective Progress Note Date: 12/01/21 Principal diagnosis: Intra-abdominal abscess, acute right lower quadrant pain, leukocytosis, suspected ruptured appendix versus cecal perforation Patient seen and examined at bedside. Doing about the same as yesterday, pain may have slightly improved. She denies fever or chills, remains nothing by mouth. No bowel movement or flatus, voiding without issue. Laboratory studies today show a slight improvement in leukocytosis with white blood cell count of 16 from 20 to yesterday, hemoglobin slightly low in the setting of ongoing IV fluids at 9.5, platelet count 229. Metabolic panel shows a slightly low CO2 at 19.9, otherwise normal with creatinine 1.0. Continues with IV Zosyn. Has been hemodynamically stable and afebrile overnight with systolic blood pressures on the low side but over 110. Objective - Vital Signs Vital signs: Vital Signs Temp 98.3 F 12/01/21 16:00 Pulse 94 12/01/21 14:07 Resp 16 12/01/21 14:07 BP 113/65 12/01/21 14:07 Pulse Ox 92 L 12/01/21 14:07 FiO2 Intake & Output 11/30/21 12/01/21 12/01/21 18:59 06:59 18:59 Other: Voiding Method Bedside Commode Bedside Commode # Voids 1 2 1 - Constitutional General appearance: Present: average body habitus, cooperative, no acute distress - EENT Eyes: Present: PERRLA ENT: Present: hearing grossly normal, NA/AT - Neck Neck: Present: normal ROM - Respiratory Respiratory: bilateral: CTA - Cardiovascular Rhythm: regular - Gastrointestinal Gastrointestinal Comment(s): Abdomen is soft with moderate to severe focal right lower quadrant tenderness over McBurney's point, voluntary guarding without rebound. Rovsing sign is absent, no signs of diffuse peritonitis. General gastrointestinal: Present: decreased bowel sounds - Integumentary Integumentary: Present: normal turgor - Neurologic Neurologic: Present: CNII-XII intact - Psychiatric Psychiatric: Present: A&O x's 3, appropriate affect, intact judgment & insight - Labs CBC & Chem 7: 12/01/21 03:24 12/01/21 03:24 Labs: Abnormal Lab Results - Last 24 Hours (Table) 12/01/21 12/01/21 Range/Units 03:24 03:24 WBC 16.16 H (4.50-10.00) X 10*3/uL RBC 3.65 L (4.10-5.20) X 10*6/uL Hgb 9.5 L (12.0-15.0) g/dL Hct 32.7 L (37.2-46.3) % MCH 26.0 L (27.0-32.0) pg MCHC 29.1 L (32.0-37.0) g/dL Immature Gran # 0.09 H (0.00-0.04) X 10*3/uL Neutrophils # 13.94 H (1.80-7.70) X 10*3/uL Monocytes # 1.05 H (0.20-1.00) X 10*3/uL Chloride 112 H (96-109) mmol/L Carbon Dioxide 19.9 L (20.0-27.5) mmol/L Est GFR (CKD-EPI)NonAf 58.2 L (60.0-200.0) BUN/Creatinine Ratio 20.10 H (12.00-20.00) Ratio Glucose 65 L (70-110) mg/dL Calcium 8.3 L (8.7-10.3) mg/dL Microbiology - Last 24 Hours (Table) 11/29/21 16:15 Blood Culture - Preliminary Blood No Growth after 24 hours 11/29/21 16:00 Blood Culture - Preliminary Blood No Growth after 24 hours 11/29/21 19:26 Urine Culture - Final Urine,Clean Catch Assessment and Plan Assessment: 66-year-old lady with clinical history, physical exam, laboratory findings, and imaging findings that in my mind most relate to acute appendicitis with contained rupture and early abscess formation. This would correlate well with her pronounced leukocytosis with left shift. She doesn't have a medical history that would take us down the road for typhlitis. She doesn't have symptoms of chronic abdominal pain, change in bowel habits or GI bleeding that would strongly implicate inflammatory bowel disease. She had a colonoscopy performed within the past year reportedly with no findings of concern. I suspect that she is relatively hypotensive with a systolic blood pressure of 109/66, she is been mounding intermittent low-grade fever tachycardia has improved with hydration. On appropriate initial antibiotic coverage. Signs of UTI on urinalysis. Plan: Follow-up CT tomorrow with oral and IV contrast to see if this fluid collection has developed enough to warrant image guided percutaneous drainage on Friday. If there ends up being an abscess there, interval surgical exploration could be considered at 8 weeks following repeat outpatient CT and likely diagnostic colonoscopy to exclude neoplasia and hopefully eliminate need for more aggressive surgery. We'll continue to follow patient closely. If she has clinical decline or worsening pain may need to change our approach. Images were reviewed with the interventional radiologist, Dr. Arroyo and he is in agreement with my interpretation of the images and in agreement with this plan. I discussed my findings with the admitting physician and we are in agreement with this initial course of action. Time with Patient: Greater than 30
[2021-12-02] MEDS: DEXTROSE 5%-0.9% NACL 1,000 ML IV SCH ×2 (00:44→13:45)
[2021-12-02 04:10] LABS: Basophils % (A) 0 %; Eosinophils # (A) 0.1 k/uL (0-0.7); Eosinophils % (A) 0 %; HCT 30.4 % (34.0-46.0); Hypochromasia Moderate; Lymphocytes % (A) 8 %; MCH 27.2 pg (25.0-35.0); MCHC 31.4 g/dL (31.0-37.0); MCV 86.6 fL (80.0-100.0); Mean Platelet Volume 8.4; Monocytes # (A) 0.6 k/uL (0-1.0); Monocytes % (A) 4 %; Neutrophils # (A) 11.6 k/uL (1.3-7.7); Neutrophils % (A) 87 %; Platelet Count 238 k/uL (150-450); RBC 3.51 m/uL (3.80-5.40); RDW 13.7 % (11.5-15.5); WBC 13.4 k/uL (3.8-10.6)
[2021-12-02 04:30] LABS: African American GFR (CKD) 86 (>60 ml/min/1.73 sqM); Anion Gap 5 mmol/L; Blood Urea Nitrogen 12 mg/dL (7-17); Calcium 8.4 mg/dL (8.4-10.2); Carbon Dioxide 23 mmol/L (22-30); Chloride 117 mmol/L (98-107); Glucose 122 mg/dL (74-99); Non-African American GFR(CKD) 74 (>60 ml/min/1.73 sqM); Potassium 3.4 mmol/L (3.5-5.1); Sodium 145 mmol/L (137-145)
[2021-12-02 04:46] LABS: HGB 9.5 gm/dL (11.4-16.0)
[2021-12-02] MEDS: HYDROmorphone 1 MG/ML 1 ML SYRINGE IVP PRN ×2 (05:17→19:29)
[2021-12-02] MEDS: PIPERACILLIN-TAZOBACTAM 3.375 GM in SODIUM CHLORIDE 0.9% 100 ML IVPB SCH ×3 (07:32→23:53)
[2021-12-02] MEDS: HEPARIN SODIUM,PORCINE/PF 5,000 UNIT/0.5 ML SYRINGE SQ SCH ×3 (07:36→23:52)
[2021-12-02] MEDS: SYMBICORT 80-4.5 MCG INHALER INHALATION SCH ×2 (08:15→20:36)
[2021-12-02] MEDS: ONDANSETRON 4 MG/2 ML VIAL IVP PRN (08:57)
[2021-12-02] MEDS: IOPAMIDOL CONTRAST (ORAL USE) VIAL PO PRN ×2 (08:57→10:09)
--- NOTE | 2021-12-02 11:26 | P.PN ---
Subjective Progress Note Date: 12/02/21 Principal diagnosis: Intra-abdominal abscess, acute right lower quadrant pain, leukocytosis, suspected ruptured appendix versus cecal perforation Patient seen and examined at bedside. Right lower quadrant abdominal pain improved quite a bit since yesterday. She denies fever or chills. Appears comfortable at rest. No reports of nausea or emesis. Laboratory studies today show continuing downtrend of leukocytosis at 13.4 from 16 yesterday. Hemoglobin stable at 9.5, platelet count 238. Serum electrolytes normal with the exception of a very mild hypokalemia at 3.4 and a mildly elevated glucose at 122. Repeat computed tomography scan of abdomen and pelvis with oral and IV contrast was obtained this morning, images were reviewed showing the right lower quadrant contained fluid collection has matured a bit to a 5 x 3 cm abscess. There is oral contrast present in the adjacent cecum and small bowel and there is no evidence of leak. Objective - Vital Signs Vital signs: Vital Signs Temp 98.5 F 12/02/21 07:00 Pulse 82 12/02/21 07:00 Resp 16 12/02/21 07:46 BP 107/67 12/02/21 07:00 Pulse Ox 92 L 12/02/21 00:42 FiO2 Intake & Output 12/01/21 12/02/21 12/02/21 18:59 06:59 18:59 Intake Total 1000 Balance 1000 Intake: Intake, IV Titration 1000 Amount Dextrose 5%-0.9% NaCl 1, 1000 000 ml @ 75 mls/hr IV . [id number] [facility] Rx#:[id number] Other: Voiding Method Bedside Commode Bedside Commode Bedside Commode # Voids 1 1 - Exam Right lower quadrant tenderness nearly completely resolved. No guarding rebound or distention on abdominal exam.. - Constitutional General appearance: Present: average body habitus, cooperative - EENT Eyes: Present: PERRLA ENT: Present: hearing grossly normal, NA/AT - Respiratory Respiratory: bilateral: CTA - Cardiovascular Rhythm: regular - Integumentary Integumentary: Present: normal turgor - Neurologic Neurologic: Present: CNII-XII intact - Psychiatric Psychiatric: Present: A&O x's 3, appropriate affect, intact judgment & insight - Labs CBC & Chem 7: 12/02/21 03:37 12/02/21 03:37 Labs: Abnormal Lab Results - Last 24 Hours (Table) 12/02/21 12/02/21 Range/Units 03:37 03:37 WBC 13.4 H (3.8-10.6) k/uL RBC 3.51 L (3.80-5.40) m/uL Hgb 9.5 L D (11.4-16.0) gm/dL Hct 30.4 L (34.0-46.0) % Neutrophils # 11.6 H (1.3-7.7) k/uL Potassium 3.4 L (3.5-5.1) mmol/L Chloride 117 H (98-107) mmol/L Glucose 122 H (74-99) mg/dL Microbiology - Last 24 Hours (Table) 11/29/21 16:15 Blood Culture - Preliminary Blood No Growth after 48 hours 11/29/21 16:00 Blood Culture - Preliminary Blood No Growth after 48 hours - Imaging and Cardiology CT scan - abdomen: image reviewed CT scan - pelvis: image reviewed Assessment and Plan Assessment: 66-year-old lady with clinical history, physical exam, laboratory findings, and imaging findings that in my mind most relate to acute appendicitis with contained rupture and early abscess formation. Follow-up CT scan shows some maturation of fluid collection to around 5 x 3 cm. This would be an appropriate target for percutaneous drainage. No evidence of oral contrast leak at adjacent opacified cecum and terminal ileum. This would correlate well with her pronounced leukocytosis with left shift. She doesn't have a medical history that would take us down the road for typhlitis. She doesn't have symptoms of chronic abdominal pain, change in bowel habits or GI bleeding that would strongly implicate inflammatory bowel disease. She had a colonoscopy performed within the past year reportedly with no findings of concern. On appropriate initial antibiotic coverage. Signs of UTI on urinalysis. Plan: We'll consult interventional radiology for potential CT guided drainage tomorrow. Continue with present antibiotic course. Assuming successful drain placement and no evidence of bowel perforation I would leave her drain in place for at least 10 days or until entirely serous, continue with a 10-14 day antibiotic course and anticipate a follow-up CT after drain removal on an outpatient basis and diagnostic colonoscopy 6-8 weeks after resolution of symptoms to investigate for neoplasia and finally laparoscopy with potential interval appendectomy to follow. Time with Patient: Greater than 30
--- NOTE | 2021-12-02 11:45 | P.PN ---
Subjective Progress Note Date: 12/02/21 Patient says that her right lower quadrant about pain is slightly better. Objective - Vital Signs Vital signs: Vital Signs Temp 98.5 F 12/02/21 07:00 Pulse 82 12/02/21 07:00 Resp 16 12/02/21 07:46 BP 107/67 12/02/21 07:00 Pulse Ox 92 L 12/02/21 00:42 FiO2 Intake & Output 12/01/21 12/02/21 12/02/21 18:59 06:59 18:59 Intake Total 1000 Balance 1000 Intake: Intake, IV Titration 1000 Amount Dextrose 5%-0.9% NaCl 1, 1000 000 ml @ 75 mls/hr IV . 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 Psych - Calm and cooperative - Labs CBC & Chem 7: 12/02/21 03:37 12/02/21 03:37 Labs: Abnormal Lab Results - Last 24 Hours (Table) 12/02/21 12/02/21 Range/Units 03:37 03:37 WBC 13.4 H (3.8-10.6) k/uL RBC 3.51 L (3.80-5.40) m/uL Hgb 9.5 L D (11.4-16.0) gm/dL Hct 30.4 L (34.0-46.0) % Neutrophils # 11.6 H (1.3-7.7) k/uL Potassium 3.4 L (3.5-5.1) mmol/L Chloride 117 H (98-107) mmol/L Glucose 122 H (74-99) mg/dL Microbiology - Last 24 Hours (Table) 11/29/21 16:15 Blood Culture - Preliminary Blood No Growth after 48 hours 11/29/21 16:00 Blood Culture - Preliminary Blood No Growth after 48 hours Assessment and Plan Assessment: Sepsis likely source is colitis with right lower quadrant abscess -Patient on admission had leukocytosis and tachycardia -Leukocytosis is improving -Resume IV Zosyn -Follow up blood cultures -Lactic acid is within normal limits and blood pressure is normotensive -Trend CBC -> WBC trending down -UA indicated UTI however urine culture negative so UTI ruled out Right lower quadrant abdominal pain Per general surgery who reviewed his computed tomography scan. That the etiology could be perforated cecum versus ruptured appendix with abscess -Repeat CT abdomen and pelvis was done today and the report from radiology is pending however has been reviewed by general surgery who said there is a maturing abscess in the right lower quadrant -Gen. surgery consulted IR for aspiration of the abscess tomorrow -Diet as per surgery. Patient currently nothing by mouth so we'll start the patient on D5 normal saline -Pain control with IV Dilaudid. We'll switch to oral pain meds once general surgery clears patient for a diet Acute kidney injury secondary decreased by mouth intake -Resume IV fluids -Resolved Asthma -Stable -Albuterol inhaler as needed and Advair Unspecified connective tissue disorder -Hold hydroxychloroquine in the setting of sepsis CODE STATUS:full code DVT prophylaxis: Subcu heparin Anticipated length of stay: Depending on clinical course Anticipated discharge place: home
--- NOTE | 2021-12-02 13:06 | CT ---
EXAMINATION TYPE: CT abdomen pelvis w con DATE OF EXAM: 12/02/2021 COMPARISON: 11/29/2021 INDICATION: intra abdominal abscess DLP: 1020.20 mGycm, Automated exposure control for dose reduction was used. CONTRAST: 100 mL of Isovue 300. Study performed with Oral Contrast TECHNIQUE: Axial images were obtained from above the diaphragm to the pubic rami in the axial plane a t 5 mm thick sections. Reconstructed images are reviewed on the computer in the coronal plane. FINDINGS: Limited CT sections are obtained the lung bases. Small right pleural effusion is present. Some mild compressive atelectasis may be adjacent. Minimal left pleural effusion is present. There is a calcifi cation in the posterior left lung base.. CT ABDOMEN: Posterior to the colon in the right paracolic gutter is a 3.3 x 4.2 cm collection with preciado rrounding inflammatory change. Small amount of air is in the nondependent portion. Findings can be co mpatible with an abscess. This has enlarged from the prior study. Liver: Normal Spleen: Normal Pancreas: Normal Adrenal glands: The adrenal glands are normal. Gallbladder: Normal Kidneys: No masses are evident. No hydronephrosis is present. There is a 14 Hounsfield unit 5.6 x 3 .9 cm cyst on the superior posterior right kidney. Delayed images were obtained through the kidneys, which remain unremarkable. Aorta: None Inferior vena cava: Normal. CT PELVIS: Loops of bowel within the abdomen and pelvis are normal. There are loops of bowel which are incom pletely distended or lack oral contrast limiting their evaluation. Appendix: Not visualized. Consider a ruptured appendicitis within the differential. Urinary bladder: Normal. Genitourinary structures: Osseous structures: No suspicious lytic or sclerotic lesions. IMPRESSIONS: 1. Developing abscess formation in the right paracolic gutter near the level of cecum. Correlate for ruptured appendicitis.
[2021-12-03] MEDS: HYDROmorphone 1 MG/ML 1 ML SYRINGE IVP PRN ×2 (00:06→07:52)
[2021-12-03 02:53] LABS: Basophils % (A) 0 %; Eosinophils # (A) 0.2 k/uL (0-0.7); Eosinophils % (A) 1 %; HCT 29.9 % (34.0-46.0); HGB 9.2 gm/dL (11.4-16.0); Hypochromasia Marked; Lymphocytes # (A) 1.3 k/uL (1.0-4.8); Lymphocytes % (A) 8 %; MCH 26.8 pg (25.0-35.0); MCHC 30.6 g/dL (31.0-37.0); MCV 87.5 fL (80.0-100.0); Mean Platelet Volume 8.6; Monocytes # (A) 0.5 k/uL (0-1.0); Monocytes % (A) 3 %; Neutrophils # (A) 14.4 k/uL (1.3-7.7); Neutrophils % (A) 87 %; Platelet Count 249 k/uL (150-450); RBC 3.42 m/uL (3.80-5.40); RDW 13.8 % (11.5-15.5); WBC 16.5 k/uL (3.8-10.6)
[2021-12-03 03:02] LABS: INR 1.2 (<1.2); Prothrombin Time 12.3 sec (9.0-12.0)
[2021-12-03 03:16] LABS: African American GFR (CKD) 88 (>60 ml/min/1.73 sqM); Anion Gap 3 mmol/L; Blood Urea Nitrogen 9 mg/dL (7-17); Calcium 8.3 mg/dL (8.4-10.2); Carbon Dioxide 26 mmol/L (22-30); Chloride 117 mmol/L (98-107); Glucose 103 mg/dL (74-99); Non-African American GFR(CKD) 77 (>60 ml/min/1.73 sqM); Potassium 3.3 mmol/L (3.5-5.1); Sodium 146 mmol/L (137-145)
[2021-12-03] MEDS ORDERED: POTASSIUM CHLORIDE ER 20 MEQ TAB.ER PO STA (03:37)
[2021-12-03] MEDS: ACETAMINOPHEN TAB 325 MG TAB PO PRN ×2 (03:59→23:11)
[2021-12-03] MEDS: DEXTROSE 5%-0.9% NACL 1,000 ML IV SCH ×2 (04:00→21:04)
[2021-12-03] MEDS: SYMBICORT 80-4.5 MCG INHALER INHALATION SCH ×2 (07:29→19:11)
[2021-12-03] MEDS: PIPERACILLIN-TAZOBACTAM 3.375 GM in SODIUM CHLORIDE 0.9% 100 ML IVPB SCH ×3 (07:53→23:00)
[2021-12-03] MEDS: HEPARIN SODIUM,PORCINE/PF 5,000 UNIT/0.5 ML SYRINGE SQ SCH ×3 (07:53→23:01)
--- NOTE | 2021-12-03 12:13 | P.PN ---
Subjective Progress Note Date: 12/03/21 Principal diagnosis: Acute appendicitis with abscess The patient is picked up on rounds today. She is having some right lower quadrant pain but it is improved from admission. Passing some flatus. Had a small amount of BM. Denies nausea or vomiting. Objective - Vital Signs Vital signs: Vital Signs Temp 98.2 F 12/03/21 07:00 Pulse 83 12/03/21 07:00 Resp 19 12/03/21 07:00 BP 135/77 12/03/21 07:00 Pulse Ox 95 12/03/21 07:00 FiO2 Intake & Output 12/02/21 12/03/21 12/03/21 18:59 06:59 18:59 Intake Total 0 Balance 0 Intake: Oral 0 Other: Voiding Method Bedside Commode Bedside Commode # Voids 1 2 # Bowel Movements 3 2 - Constitutional General appearance: Present: cooperative, no acute distress - Gastrointestinal General gastrointestinal: Present: decreased bowel sounds, tenderness (Very mild right lower quadrant tenderness without guarding or rebound) Localized gastrointestinal: tender: RLQ (She has fullness in the right lower quadrant consistent with the developing abscess seen on computed tomography scan), mass: RLQ - Labs CBC & Chem 7: 12/03/21 02:41 12/03/21 02:41 Labs: Abnormal Lab Results - Last 24 Hours (Table) 12/03/21 12/03/21 12/03/21 Range/Units 02:41 02:41 02:41 WBC 16.5 H (3.8-10.6) k/uL RBC 3.42 L (3.80-5.40) m/uL Hgb 9.2 L (11.4-16.0) gm/dL Hct 29.9 L (34.0-46.0) % MCHC 30.6 L (31.0-37.0) g/dL Neutrophils # 14.4 H (1.3-7.7) k/uL PT 12.3 H (9.0-12.0) sec INR 1.2 H (<1.2) Sodium 146 H (137-145) mmol/L Potassium 3.3 L (3.5-5.1) mmol/L Chloride 117 H (98-107) mmol/L Glucose 103 H (74-99) mg/dL Calcium 8.3 L (8.4-10.2) mg/dL Microbiology - Last 24 Hours (Table) 11/29/21 16:15 Blood Culture - Preliminary Blood No Growth after 72 hours 11/29/21 16:00 Blood Culture - Preliminary Blood No Growth after 72 hours Assessment and Plan (1) Acute appendicitis with peritoneal abscess Current Visit: Yes Status: Acute Code(s): K35.33 - ACUTE APPENDICITIS WITH PERF AND LOC PERITONITIS, WITH ABSCS SNOMED Code(s): 19595401 Plan: Repeat CT done yesterday does show the development of an abscess. Interventional radiologist has been consulted for percutaneous drainage and feels that this is amenable to drainage. I discussed the usual worse with the patient. Typically she would need to be hospitalized several more days on IV antibiotics with serial exams and possible repeated CT if her leukocytosis doesn't improve by mid week. She is otherwise doing fairly well so she'll be started on clear liquid diet after her percutaneous drainage. Questions were encouraged and answered.
[2021-12-03] MEDS ORDERED: HYDROmorphone 0.5 MG/0.5 ML SYRINGE IVP STA (12:42)
--- NOTE | 2021-12-03 13:59 | P.PCN ---
Date of Procedure: 12/03/21 Preoperative Diagnosis: abscess intra abdominal Postoperative Diagnosis: same Anesthesia: local Estimated Blood Loss (ml): 5 Pathology: other (purulent material) Condition: stable Disposition: no change Operative Findings: 8.5 fr tube to gravity rlq
--- NOTE | 2021-12-03 14:29 | CT ---
EXAMINATION TYPE: CT guided abscess drainage DATE OF EXAM: 12/03/2021 HISTORY: Right lower quadrant intra-abdominal abscess COMPARISON: CT 12/02/2021 PROCEDURE: Maximal barrier technique was utilized. The skin over suitable path to the abscess in the right lowe r quadrant of the abdomen was localized with CT and the overlying skin prepped and draped. Lidocaine was used for local anesthesia. A skin fabienne made with a scalpel. Access was gained using CT FedBidanc e with a 21-gauge needle, purulent material returned in the hub of the needle. A 0.018 inch wire was advanced and the access site was upsized, the wire was upsized and subsequently an 8.5-Hungarian drain was deployed within the abscess cavity and fixed in place. Catheter attached to gravity drainage. N o immediate complication. Purulent material sent for laboratory analysis and draining into the bag. The patient remained in stable condition. IMPRESSION: STATUS POST CT GUIDED ABSCESS DRAINAGE, MICROBIOLOGY ANALYSIS IS PENDING. THIS PROCEDURE WAS PERFORM ED BY THE UNDERSIGNED.
--- NOTE | 2021-12-03 18:18 | P.PN ---
Subjective Progress Note Date: 12/03/21 Principal diagnosis: Right lower quadrant pain Patient was seen and examined. No acute events overnight. Underwent incision and drainage of right lower quadrant abscess by IR today. She was seen after her procedure. Patient reports well controlled pain in her abdomen. She denies any nausea or vomiting. No fever or chills. Objective - Vital Signs Vital signs: Vital Signs Temp 98.9 F 12/03/21 15:01 Pulse 130 H 12/03/21 15:01 Resp 22 12/03/21 15:01 BP 114/57 12/03/21 15:01 Pulse Ox 82 L 12/03/21 15:01 FiO2 Intake & Output 12/02/21 12/03/21 12/03/21 18:59 06:59 18:59 Intake Total 0 Balance 0 Intake: Oral 0 Other: Voiding Method Bedside Commode Bedside Commode # Voids 1 2 1 # Bowel Movements 3 2 - Exam General: [non toxic], [no distress], [appears at stated age] Derm: [warm], [dry] Head: [atraumatic], [normocephalic], [symmetric] Eyes: [EOMI], [no lid lag], [anicteric sclera] Mouth: [no lip lesion], [mucus membranes moist] Cardiovascular: [S1S2 reg], [no murmur] Lungs: [Decreased breath sounds bilateral], [no rhonchi, no rales] , [no accessory muscle use] Abdominal: [soft], [tenderness to palpation in the right lower quadrant with deep palpation], [no guarding], [no appreciable organomegaly] Ext: [no gross muscle atrophy], [no edema], [no contractures] Neuro: [no focal neuro deficits] Psych: [Alert], [oriented], [appropriate affect] - Labs CBC & Chem 7: 12/03/21 02:41 12/03/21 02:41 Labs: Abnormal Lab Results - Last 24 Hours (Table) 12/03/21 12/03/21 12/03/21 Range/Units 02:41 02:41 02:41 WBC 16.5 H (3.8-10.6) k/uL RBC 3.42 L (3.80-5.40) m/uL Hgb 9.2 L (11.4-16.0) gm/dL Hct 29.9 L (34.0-46.0) % MCHC 30.6 L (31.0-37.0) g/dL Neutrophils # 14.4 H (1.3-7.7) k/uL PT 12.3 H (9.0-12.0) sec INR 1.2 H (<1.2) Sodium 146 H (137-145) mmol/L Potassium 3.3 L (3.5-5.1) mmol/L Chloride 117 H (98-107) mmol/L Glucose 103 H (74-99) mg/dL Calcium 8.3 L (8.4-10.2) mg/dL Microbiology - Last 24 Hours (Table) 11/29/21 16:15 Blood Culture - Preliminary Blood No Growth after 72 hours 11/29/21 16:00 Blood Culture - Preliminary Blood No Growth after 72 hours Assessment and Plan Assessment: Sepsis likely source is colitis with right lower quadrant abscess -Patient on admission had leukocytosis and tachycardia -Leukocytosis is improving -Resume IV Zosyn -Follow up blood cultures -Status post I&D of right lower quadrant abscess by IR, cultures are pending -Lactic acid is within normal limits and blood pressure is normotensive -Trend CBC -> WBC trending down -UA indicated UTI however urine culture negative so UTI ruled out -Diet advanced to clear liquid diet. DC IVF and encourage hydration by mouth. -Pain control with IV Dilaudid. We'll switch to oral pain meds once general surgery clears patient for a diet Hypokalemia -Replace Acute kidney injury secondary decreased by mouth intake -Resume IV fluids -Resolved Asthma -Stable -Albuterol inhaler as needed and Advair Unspecified connective tissue disorder -Hold hydroxychloroquine in the setting of sepsis CODE STATUS:full code DVT prophylaxis: Subcu heparin Anticipated length of stay: Depending on clinical course Anticipated discharge place: home
--- NOTE | 2021-12-04 08:02 | P.CONS ---
History of Present Illness - Reason for Consult Consult date: 12/03/21 Appendicitis with abscess Requesting physician: Erik Mcdonald - Chief Complaint Abdominal pain x few days - History of Present Illness Patient is a 66-year-old female presenting to the hospital 4 days ago for evaluation of abdominal pain that has been going on for 4 days before presentation to the hospital patient pain has been mostly in the right lower abd ominal area describing to be more of a crampy and achy with intensity that has gotten worse over time patient was about 4 different mild time she presented to hospital patient did have associated nausea but no vomiting and no diarrhea or constipation on presentation to the hospital the patient was afebrile initially subsequently patient was running a low-grade fever of 100.1 to 100.4 F patient did have white count of 22.14 with a left shift creatinine has been normal urine mildly positive blood culture has been obtained which are currently pending patient did have a CT of abdominal pelvis significant inflammatory changes around the cecum and proximal ascending colon appendix not identified correlate for acute appendicitis colitis and colitis patient be treated with Zosyn under the care of internal medicine and general surgery patient did have a repeat CAT scan completed yesterday afternoon which did shows a 3.3X 4.2 cm collection with surrounding inflammatory changes concerning for an abscess that has prompted this infectious disease consultation IR has been consulted for CT-guided drainage of this fluid this afternoon Review of Systems Positive point has been mentioned in the HPI rest of the systems are negative Past Medical History Past Medical History: Asthma, GERD/Reflux, Hearing Disorder / Deafness, Pneu monia Additional Past Medical History / Comment(s): Has difficulty swallowingonce in a while, hx peripheral lower extremity edema & cellulitis 4 yrs ago. Arthritis, not sure what type. Hx pneumonia. LUMBEE left ear. History of Any Multi-Drug Resistant Organisms: None Reported Past Surgical History: Breast Surgery, Tubal Ligation Additional Past Surgical History / Comment(s): Colonoscopies, left breast biopsy. Past Anesthesia/Blood Transfusion Reactions: No Reported Reaction Past Psychological History: No Psychological Hx Reported Smoking Status: Never smoker Past Alcohol Use History: None Reported Past Drug Use History: None Reported - Past Family History Father Additional Family Medical History / Comment(s): Alheimer's disease. Mother Family Medical History: Cancer, Osteoarthritis (OA) Additional Family Medical History / Comment(s): Uterine and skin ca, fast heart rate. Medications and Allergies Home Medications Medication Instructions Recorded Confirmed Type Albuterol Sulfate [Proair Hfa] 2 puff INHALATION RT-Q6H PRN 07/02/14 11/29/21 History Fluticasone Propion/Salmeterol 1 puff INHALATION RT-DAILY 07/02/14 11/29/21 History [Advair 100-50 Diskus] Montelukast Sodium [Singulair] 10 mg PO HS 07/02/14 11/29/21 History Aspirin 325 mg PO DAILY 08/11/15 11/29/21 History Cetirizine HCl [Zyrtec] 10 mg PO DAILY 08/11/15 11/29/21 History Hydroxychloroquine Sulfate 200 mg PO DAILY 08/11/15 11/29/21 History [Plaquenil] Multivitamins, Thera [Multivitamin] 1 tab PO DAILY 08/11/15 11/29/21 History Calcium Carbonate [Calcium] 600 mg PO DAILY 11/29/21 11/29/21 History Cholecalciferol [Vitamin D3 (10 10 mcg PO Q72H 11/29/21 11/29/21 History Mcg = 400 Iu)] Meclizine [Antivert] 12.5 mg PO BID PRN 11/29/21 11/29/21 History Allergies Allergy/AdvReac Type Severity Reaction Status Date / Time Sulfa (Sulfonamide Allergy Rash/Hives Verified 11/29/21 13:37 Antibiotics) Physical Exam Vitals: Vital Signs Temp Pulse Resp BP BP Pulse Ox 12/03/21 07:00 98.2 F 83 19 135/77 95 12/03/21 01:23 98.2 F 80 16 122/77 97 12/03/21 00:09 98.3 F 12/02/21 20:37 90 L 12/02/21 19:33 99.7 F H 80 16 110/69 93 L 12/02/21 14:28 98.5 F 80 16 109/65 99 12/02/21 13:50 16 Intake and Output 12/02/21 12/03/21 12/03/21 22:59 06:59 14:59 Intake Total 0 Balance 0 Intake: Oral 0 Other: Voiding Method Bedside Commode Bedside Commode # Voids 1 2 # Bowel Movements 2 GENERAL DESCRIPTION: Elderly female lying in bed, no distress. No tachypnea or accessory muscle of respiration use. HEENT: Shows Pallor , no scleral icterus. Oral mucous membrane is dry. No pharyngeal erythema or thrush NECK: Trachea central, no thyromegaly. LUNGS: Unlabored breathing. Clear to auscultation anteriorly. No wheeze or crackle. HEART: S1, S2, regular rate and rhythm. No loud murmur ABDOMEN: Soft, right-sided tenderness , no guarding or rigidity, no organomegaly EXTREMITIES: No edema of feet. SKIN: No rash, no masses palpable. NEUROLOGICAL: The patient is awake, alert, oriented x3, mood and affect normal. Results CBC & Chem 7: 12/03/21 02:41 12/03/21 02:41 Labs: Abnormal Lab Results - Last 24 Hours (Table) 12/03/21 12/03/21 12/03/21 Range/Units 02:41 02:41 02:41 WBC 16.5 H (3.8-10.6) k/uL RBC 3.42 L (3.80-5.40) m/uL Hgb 9.2 L (11.4-16.0) gm/dL Hct 29.9 L (34.0-46.0) % MCHC 30.6 L (31.0-37.0) g/dL Neutrophils # 14.4 H (1.3-7.7) k/uL PT 12.3 H (9.0-12.0) sec INR 1.2 H (<1.2) Sodium 146 H (137-145) mmol/L Potassium 3.3 L (3.5-5.1) mmol/L Chloride 117 H (98-107) mmol/L Glucose 103 H (74-99) mg/dL Calcium 8.3 L (8.4-10.2) mg/dL Microbiology - Last 24 Hours (Table) 11/29/21 16:15 Blood Culture - Preliminary Blood No Growth after 72 hours 11/29/21 16:00 Blood Culture - Preliminary Blood No Growth after 72 hours Assessment and Plan (1) Acute appendicitis with peritoneal abscess Current Visit: Yes Status: Acute Code(s): K35.33 - ACUTE APPENDICITIS WITH PERF AND LOC PERITONITIS, WITH ABSCS SNOMED Code(s): 22978956 Plan: 1patient presented hospital abdominal pain about 4 to 5 days ago symptom has been going on for more than a week in this patient initial CAT scan was suspicious for inflammatory changes to the right lower quadrant area now with evidence of developing abscess on repeat CAT scan high clinic suspicious for perforated appendicitis with periappendicular abscess and need to cover for enteric gram-negative both aerobes and anaerobes. 2we will wait for the CT-guided drainage of this fluid which should be sent for culture both aerobic anaerobic. 3patient to continue with Zosyn while waiting for the culture to finalize. 4patient will likely need PICC line and outpatient IV antibiotic therapy on discharge. We will follow on clinical condition and cultures to further adjust medication if needed Thank you for this consultation will follow this patient along with you
[2021-12-04] MEDS: HEPARIN SODIUM,PORCINE/PF 5,000 UNIT/0.5 ML SYRINGE SQ SCH ×3 (08:13→23:50)
[2021-12-04] MEDS: PIPERACILLIN-TAZOBACTAM 3.375 GM in SODIUM CHLORIDE 0.9% 100 ML IVPB SCH ×3 (08:13→23:49)
[2021-12-04] MEDS: SYMBICORT 80-4.5 MCG INHALER INHALATION SCH ×2 (08:30→20:10)
[2021-12-04 09:12] LABS: African American GFR (CKD) 86.1 (60.0-200.0); Anion Gap 8.2 mmol/L (10.00-18.00); BUN/Creat Ratio 9.24 Ratio (12.00-20.00); Blood Urea Nitrogen 7.6 mg/dL (9.0-27.0); Calcium 8.4 mg/dL (8.7-10.3); Carbon Dioxide 25.7 mmol/L (20.0-27.5); Non-African American GFR(CKD) 74.3 (60.0-200.0); Potassium 3.5 mmol/L (3.5-5.5)
--- NOTE | 2021-12-04 09:14 | P.PN ---
Subjective Progress Note Date: 12/04/21 Principal diagnosis: Acute appendicitis with abscess The patient is seen on rounds. She is feeling better today. Tolerating clear liquids. No nausea or vomiting. Yesterday afternoon she had a percutaneous drainage of abscess. Objective - Vital Signs Vital signs: Vital Signs Temp 98.2 F 12/04/21 07:55 Pulse 87 12/04/21 07:55 Resp 18 12/04/21 07:55 BP 109/67 12/04/21 07:55 Pulse Ox 95 12/04/21 07:55 FiO2 Intake & Output 12/03/21 12/04/21 12/04/21 18:59 06:59 18:59 Intake Total 480 Output Total 30 Balance -30 480 Intake: Oral 480 Output: Drainage 30 Right Lower Lateral 30 Abdomen Other: # Voids 1 2 - Constitutional General appearance: Present: cooperative, no acute distress - Gastrointestinal General gastrointestinal: Present: decreased bowel sounds, soft, tenderness (Improved from yesterday) Localized gastrointestinal: mass: RLQ (Fullness in the right lower quadrant is improved) - Labs CBC & Chem 7: 12/03/21 02:41 12/03/21 02:41 Labs: Microbiology - Last 24 Hours (Table) 12/03/21 13:05 Gram Stain - Preliminary Aspirate Body Fluid Culture - Preliminary 12/03/21 13:05 Anaerobic Culture - Preliminary Aspirate 11/29/21 16:15 Blood Culture - Preliminary Blood No Growth after 96 hours 11/29/21 16:00 Blood Culture - Preliminary Blood No Growth after 96 hours Assessment and Plan (1) Acute appendicitis with peritoneal abscess Current Visit: Yes Status: Acute Code(s): K35.33 - ACUTE APPENDICITIS WITH PERF AND LOC PERITONITIS, WITH ABSCS SNOMED Code(s): 85295784 Plan: Patient is clinically improving. Continue IV antibiotics. Await results from culture and sensitivity. Progressing slowly.
--- NOTE | 2021-12-04 16:12 | P.PN ---
Subjective Progress Note Date: 12/04/21 Principal diagnosis: Right lower quadrant pain Patient was seen and examined. No acute events overnight. Underwent incision and drainage of right lower quadrant abscess by IR 12/03. Patient reports well controlled pain in her abdomen. She reports bloating. No bowel movement, but passing gas. She denies any nausea or vomiting. No fever or chills. Objective - Vital Signs Vital signs: Vital Signs Temp 98.2 F 12/04/21 07:55 Pulse 87 12/04/21 07:55 Resp 18 12/04/21 08:00 BP 109/67 12/04/21 07:55 Pulse Ox 95 12/04/21 07:55 FiO2 Intake & Output 12/03/21 12/04/21 12/04/21 18:59 06:59 18:59 Intake Total 480 Output Total 30 10 Balance -30 470 Intake: Oral 480 Output: Drainage 30 10 Right Lower Lateral 30 10 Abdomen Other: Voiding Method Bedside Commode # Voids 1 2 1 - Exam General: [non toxic], [no distress], [appears at stated age] Derm: [warm], [dry] Head: [atraumatic], [normocephalic], [symmetric] Eyes: [EOMI], [no lid lag], [anicteric sclera] Mouth: [no lip lesion], [mucus membranes moist] Cardiovascular: [S1S2 reg], [no murmur] Lungs: [Decreased breath sounds bilateral], [no rhonchi, no rales] , [no accessory muscle use] Abdominal: [soft], [tenderness to palpation in the right lower quadrant with deep palpation], [CHRISTINA draining serosanguineous fluid], [positive bowel sounds] Ext: [no gross muscle atrophy], [no edema], [no contractures] Neuro: [no focal neuro deficits] Psych: [Alert], [oriented], [appropriate affect] - Labs CBC & Chem 7: 12/03/21 02:41 12/04/21 04:25 Labs: Abnormal Lab Results - Last 24 Hours (Table) 12/04/21 Range/Units 04:25 Chloride 110 H (96-109) mmol/L Anion Gap 8.20 L (10.00-18.00) mmol/L BUN 7.6 L (9.0-27.0) mg/dL BUN/Creatinine Ratio 9.24 L (12.00-20.00) Ratio Calcium 8.4 L (8.7-10.3) mg/dL Microbiology - Last 24 Hours (Table) 12/03/21 13:05 Gram Stain - Preliminary Aspirate Body Fluid Culture - Preliminary 12/03/21 13:05 Anaerobic Culture - Preliminary Aspirate 11/29/21 16:15 Blood Culture - Preliminary Blood No Growth after 96 hours 11/29/21 16:00 Blood Culture - Preliminary Blood No Growth after 96 hours Assessment and Plan Assessment: Sepsis likely source is colitis with right lower quadrant abscess -Patient on admission had leukocytosis and tachycardia -Leukocytosis is improving -Resume IV Zosyn -Follow up blood cultures -Status post I&D of right lower quadrant abscess by IR, cultures are pending, discussed with Dr. Melo, will need jail IV antibiotics on discharge. -Lactic acid is within normal limits and blood pressure is normotensive -Trend CBC -> WBC trending down -UA indicated UTI however urine culture negative so UTI ruled out -Diet advanced to clear liquid diet. DC IVF and encourage hydration by mouth. -Pain control with IV Dilaudid. We'll switch to oral pain meds once general surgery clears patient for a diet Acute kidney injury secondary decreased by mouth intake -Encourage hydration by mouth -Resolved Asthma -Stable -Albuterol inhaler as needed and Advair Unspecified connective tissue disorder -Hold hydroxychloroquine in the setting of sepsis CODE STATUS:full code DVT prophylaxis: Subcu heparin Anticipated length of stay: Depending on clinical course Anticipated discharge place: home
[2021-12-04] MEDS: ACETAMINOPHEN TAB 325 MG TAB PO PRN (19:19)
[2021-12-05] MEDS: HEPARIN SODIUM,PORCINE/PF 5,000 UNIT/0.5 ML SYRINGE SQ SCH ×3 (08:24→23:21)
[2021-12-05] MEDS: PIPERACILLIN-TAZOBACTAM 3.375 GM in SODIUM CHLORIDE 0.9% 100 ML IVPB SCH ×3 (08:24→23:21)
[2021-12-05] MEDS: ACETAMINOPHEN TAB 325 MG TAB PO PRN (08:25)
[2021-12-05] MEDS: SYMBICORT 80-4.5 MCG INHALER INHALATION SCH ×2 (08:29→19:36)
--- NOTE | 2021-12-05 10:43 | P.PN ---
Subjective Progress Note Date: 12/04/21 Principal diagnosis: Peridiverticular abscess Patient is a 66-year female presented to hospital with abdominal pain patient was noticed to have evidence of peridiverticular abscess in this patient who is status post CT-guided drainage of the abscess and drainage catheter placement on 12/03/2021. On today's evaluation that is 12/04/2021, the patient denies having any fever or any chills, the patient still complaining of pain to the right lower quadrant area but no worsening no chest pain shortness of breath or cough, no nausea vomiting or diarrhea Objective - Vital Signs Vital signs: Vital Signs Temp 98.2 F 12/04/21 07:55 Pulse 87 12/04/21 07:55 Resp 18 12/04/21 08:00 BP 109/67 12/04/21 07:55 Pulse Ox 95 12/04/21 07:55 FiO2 Intake & Output 12/03/21 12/04/21 12/04/21 18:59 06:59 18:59 Intake Total 480 Output Total 30 Balance -30 480 Intake: Oral 480 Output: Drainage 30 Right Lower Lateral 30 Abdomen Other: Voiding Method Bedside Commode # Voids 1 2 1 - Exam GENERAL DESCRIPTION: Elderly female lying in bed, no distress. No tachypnea or accessory muscle of respiration use. LUNGS: Unlabored breathing. Clear to auscultation anteriorly. No wheeze or crackle. HEART: S1, S2, regular rate and rhythm. No loud murmur ABDOMEN: Soft, mild tenderness EXTREMITIES: No edema of feet. - Labs CBC & Chem 7: 12/03/21 02:41 12/04/21 04:25 Labs: Abnormal Lab Results - Last 24 Hours (Table) 12/04/21 Range/Units 04:25 Chloride 110 H (96-109) mmol/L Anion Gap 8.20 L (10.00-18.00) mmol/L BUN 7.6 L (9.0-27.0) mg/dL BUN/Creatinine Ratio 9.24 L (12.00-20.00) Ratio Calcium 8.4 L (8.7-10.3) mg/dL Microbiology - Last 24 Hours (Table) 12/03/21 13:05 Gram Stain - Preliminary Aspirate Body Fluid Culture - Preliminary 12/03/21 13:05 Anaerobic Culture - Preliminary Aspirate 11/29/21 16:15 Blood Culture - Preliminary Blood No Growth after 96 hours 11/29/21 16:00 Blood Culture - Preliminary Blood No Growth after 96 hours Assessment and Plan (1) Acute appendicitis with peritoneal abscess Current Visit: Yes Status: Acute Code(s): K35.33 - ACUTE APPENDICITIS WITH PERF AND LOC PERITONITIS, WITH ABSCS SNOMED Code(s): 77306467 Plan: 1patient presented hospital abdominal pain about 4 to 5 days ago symptom has been going on for more than a week in this patient initial CAT scan was suspicious for inflammatory changes to the right lower quadrant area now with evidence of developing abscess on repeat CAT scan high clinic suspicious for perforated appendicitis with periappendicular abscess and need to cover for enteric gram-negative both aerobes and anaerobes. 2Patient is s/p CT-guided drainage of this fluid which has been sent for culture both aerobic anaerobic. 3patient to continue with Zosyn while waiting for the culture to finalize.
--- NOTE | 2021-12-05 11:11 | P.PN ---
Subjective Progress Note Date: 12/05/21 Principal diagnosis: Right lower quadrant pain Patient was seen and examined. No acute events overnight. Underwent incision and drainage of right lower quadrant abscess by IR 12/03. Patient reports well controlled pain in her abdomen. She denies any nausea or vomiting. No fever or chills. Culture growing gram-negative bacilli, group D enterococcus, beta- hemolytic strep. Objective - Vital Signs Vital signs: Vital Signs Temp 98.4 F 12/05/21 07:25 Pulse 65 12/05/21 07:25 Resp 18 12/05/21 07:25 BP 115/69 12/05/21 07:25 Pulse Ox 98 12/05/21 07:25 FiO2 Intake & Output 12/04/21 12/05/21 12/05/21 18:59 06:59 18:59 Intake Total 598 Output Total 10 10 Balance 588 -10 Intake: Oral 598 Output: Drainage 10 10 Right Lower Lateral 10 10 Abdomen Other: Voiding Method Bedside Commode Bedside Commode # Voids 1 1 1 # Bowel Movements 1 - Exam General: [non toxic], [no distress], [appears at stated age] Derm: [warm], [dry] Head: [atraumatic], [normocephalic], [symmetric] Eyes: [EOMI], [no lid lag], [anicteric sclera] Mouth: [no lip lesion], [mucus membranes moist] Cardiovascular: [S1S2 reg], [no murmur] Lungs: [Decreased breath sounds bilateral], [no rhonchi, no rales] , [no accessory muscle use] Abdominal: [soft], [tenderness to palpation in the right lower quadrant with deep palpation], [CHRISTINA draining serosanguineous fluid], [positive bowel sounds] Ext: [no gross muscle atrophy], [no edema], [no contractures] Neuro: [no focal neuro deficits] Psych: [Alert], [oriented], [appropriate affect] - Labs CBC & Chem 7: 12/03/21 02:41 12/04/21 04:25 Labs: Microbiology - Last 24 Hours (Table) 12/03/21 13:05 Gram Stain - Preliminary Aspirate Body Fluid Culture - Preliminary Gram Neg Bacilli Group D Enterococcus Beta Hemolytic Streptococcus F 11/29/21 16:15 Blood Culture - Preliminary Blood No Growth after 120 hours 11/29/21 16:00 Blood Culture - Preliminary Blood No Growth after 120 hours Assessment and Plan Assessment: Sepsis likely source is colitis with right lower quadrant abscess -Patient on admission had leukocytosis and tachycardia -Leukocytosis is improving -Resume IV Zosyn -Follow up blood cultures -Status post I&D of right lower quadrant abscess by IR, final cultures are pending, discussed with Dr. 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 -Lactic acid is within normal limits and blood pressure is normotensive -Trend CBC -> WBC trending down -UA indicated UTI however urine culture negative so UTI ruled out -Diet advanced to clear liquid diet. DC IVF and encourage hydration by mouth. -Pain control with IV Dilaudid. We'll switch to oral pain meds once general surgery clears patient for a diet Acute kidney injury secondary decreased by mouth intake -Encourage hydration by mouth -Resolved Asthma -Stable -Albuterol inhaler as needed and Advair Unspecified connective tissue disorder -Hold hydroxychloroquine in the setting of sepsis CODE STATUS:full code DVT prophylaxis: Subcu heparin Anticipated length of stay: Depending on clinical course Anticipated discharge place: home
--- NOTE | 2021-12-05 12:47 | CDI ---
Documentation Clarification Form Date: 12/05/2021 12:30:49 PM From: Betty BurroughsOLIVIER hdez, CCDS Admit Date: 11/30/2021 09:01:00 AM Patient Name: Amrita Vogel Visit Number: [id number] Discharge Date: ATTENTION: The Clinical Documentation Specialists (CDI) and [facility] Coding Staff appreciate your assistance in clarifying documentation. Please respond to the clarification below the line at the bottom and electronically sign. The CDI & [facility] Coding staff will review the response and follow-up if needed. Please note: Queries are made part of the Legal Health Record. If you have any questions, please contact the author of this message via ITS. Dr. Erik Mcdonald: Conflicting documentation has been found in the medical record. As attending physician, please provide clarification. Acute Appendicitis is documented in the 11/29 ED Note, the 11/29 History & Physical and in subsequent Attending Physician Progress notes. Sepsis likely source is Colitis vs appendicitis is documented in the 11/29 and subsequent Progress Notes. Beginning with the 12/02 Attending Progress Note: Sepsis likely source is colitis with Right Lower Quadrant Abscess. History/Risk Factors per the 11/29 H/P: Asthma, GERD, Hard of Hearing left ear, Pneumonia, Cellulitis and Edema lower extremity, Osteoarthritis. Clinical Indicators: Presented to the ED on 11/29 with Abdominal Pain, chills, decreased appetite. Pain to right lower quadrant with cramping. Admit to Observation Status with Abdominal Pain 11/30 Admit to Inpatient Status with Sepsis, likely source is Colitis vs Appendicitis and BRYSON. 11/30 VS: T 100.1, P 88, R 18, BP 109/66, PO 95 RA, BMI: 32.1 11/30 LAB: WBC 22.74, RBC 3.85, Hgb 10.1, Hct 34.3, Immature Gran 0.11, Neutrophils 20.23, Monocytes 1.13, Eosinophils 0.01; CO2 18, BUN 29.3, GFR 42.4, Glucose 62, Calcium 8.6 11/29 UA: cloudy, trace protein, 1+ ketones, Moderate blood, Large esterase, RBC 8, WBC 74 (UTI ruled out by attending per 12/02 Attending Progress Note. 11/29 CT Abd/Pelvis: Inflammatory changes surrounding the cecum & proximal ascending colon, appendix is not identified. Correlate for acute appendicitis. Typhitis & colitis could be considered. 12/02 CT Abd/Pelvis: Developing abscess formation in the right paracolic gutter near the level of cecum. Correlate for ruptured appendicitis. Treatment 11/30: Surgery Consulted, IV Zosyn 100 mls @ 25 mls/hr q8H, INH Symbicort 2 puffs BID 12/[address] guided Drainage of Intra-Abdominal Abscess. Please clarify which diagnosis is most appropriate: [ ] Sepsis secondary to Colitis [ ] Sepsis secondary to Acute Appendicitis Rupture and Abscess [ ] Other (please specify) [ ] Unable to determine (Template Last Revised: July 2020) Sepsis secondary to Acute Appendicitis Rupture and Abscess MTDD
--- NOTE | 2021-12-05 13:27 | P.PN ---
Subjective Progress Note Date: 12/05/21 Principal diagnosis: Acute appendicitis with abscess Patient is seen on rounds. She has some pain but it is controlled with oral Tylenol. Tolerating a soft diet. No nausea or vomiting. No fevers or chills. Objective - Vital Signs Vital signs: Vital Signs Temp 98.4 F 12/05/21 07:25 Pulse 65 12/05/21 08:00 Resp 18 12/05/21 08:00 BP 115/69 12/05/21 07:25 Pulse Ox 98 12/05/21 07:25 FiO2 Intake & Output 12/04/21 12/05/21 12/05/21 18:59 06:59 18:59 Intake Total 598 Output Total 10 10 Balance 588 -10 Intake: Oral 598 Output: Drainage 10 10 Right Lower Lateral 10 10 Abdomen Other: Voiding Method Bedside Commode Bedside Commode Bedside Commode # Voids 1 1 1 # Bowel Movements 1 - Constitutional General appearance: Present: cooperative, no acute distress - Gastrointestinal General gastrointestinal: Present: normal bowel sounds, soft, tenderness (Mild left lower quadrant tenderness without guarding or rebound) - Labs CBC & Chem 7: 12/03/21 02:41 12/04/21 04:25 Labs: Microbiology - Last 24 Hours (Table) 12/03/21 13:05 Gram Stain - Preliminary Aspirate Body Fluid Culture - Preliminary Gram Neg Bacilli Group D Enterococcus Beta Hemolytic Streptococcus F 11/29/21 16:15 Blood Culture - Preliminary Blood No Growth after 120 hours 11/29/21 16:00 Blood Culture - Preliminary Blood No Growth after 120 hours Assessment and Plan (1) Acute appendicitis with peritoneal abscess Current Visit: Yes Status: Acute Code(s): K35.33 - ACUTE APPENDICITIS WITH PERF AND LOC PERITONITIS, WITH ABSCS SNOMED Code(s): 79740850 Plan: Patient is progressing well from a surgical standpoint. We're awaiting culture and sensitivity. Multiple organisms are growing. Continue antibiotics per infectious diseases and supportive care. Currently nonsurgical.
[2021-12-05 14:24] VITALS: BMI 32.1
[2021-12-06] MEDS: ACETAMINOPHEN TAB 325 MG TAB PO PRN (02:26)
[2021-12-06] MEDS: SYMBICORT 80-4.5 MCG INHALER INHALATION SCH ×2 (07:22→20:11)
[2021-12-06 08:02] VITALS: RESP 17
[2021-12-06] MEDS: HEPARIN SODIUM,PORCINE/PF 5,000 UNIT/0.5 ML SYRINGE SQ SCH ×2 (08:24→16:15)
[2021-12-06] MEDS: PIPERACILLIN-TAZOBACTAM 3.375 GM in SODIUM CHLORIDE 0.9% 100 ML IVPB SCH ×2 (08:25→16:14)
[2021-12-06] MEDS ORDERED: IOPAMIDOL CONTRAST (ORAL USE) VIAL PO PRN (09:24)
--- NOTE | 2021-12-06 09:27 | P.PN ---
Subjective Progress Note Date: 12/06/21 Principal diagnosis: Acute appendicitis with abscess Patient is seen on rounds. She is having mild discomfort. No nausea or vomiting. Tolerating a diet. Objective - Vital Signs Vital signs: Vital Signs Temp 98.2 F 12/06/21 08:00 Pulse 62 12/06/21 08:00 Resp 17 12/06/21 08:00 BP 124/69 12/06/21 08:00 Pulse Ox 94 L 12/06/21 08:00 FiO2 Intake & Output 12/05/21 12/06/21 12/06/21 18:59 06:59 18:59 Intake Total 711 Output Total 10 Balance -10 711 Weight 77.111 kg Intake: Oral 711 Output: Drainage 10 Right Lower Lateral 10 Abdomen Other: Voiding Method Bedside Commode Bedside Commode # Voids 1 5 # Bowel Movements 1 - Constitutional General appearance: Present: no acute distress - Gastrointestinal Gastrointestinal Comment(s): Fullness right lower quadrant has improved from Friday General gastrointestinal: Present: normal bowel sounds, soft, tenderness (Mild in the right lower quadrant) - Labs CBC & Chem 7: 12/03/21 02:41 12/04/21 04:25 Labs: Microbiology - Last 24 Hours (Table) 12/03/21 13:05 Gram Stain - Preliminary Aspirate Body Fluid Culture - Preliminary Escherichia coli Group D Enterococcus Beta Hemolytic Streptococcus F 11/29/21 16:15 Blood Culture - Final Blood No Growth after 144 hours 11/29/21 16:00 Blood Culture - Final Blood No Growth after 144 hours Assessment and Plan (1) Acute appendicitis with peritoneal abscess Current Visit: Yes Status: Acute Code(s): K35.33 - ACUTE APPENDICITIS WITH PERF AND LOC PERITONITIS, WITH ABSCS SNOMED Code(s): 65576396 Plan: Final cultures are still pending. We will repeat the CT scan to check for resolution of the abscess. Hopefully she is ready for discharge in 24 to 48 hours
--- NOTE | 2021-12-06 10:36 | P.DS ---
Providers Date of admission: 11/30/21 09:01 Expected date of discharge: 12/06/21 Attending physician: Amadeo Betancourt MD Consults: 11/30/21 12:07 Consult Physician Urgent Consulting Provider: Titi Samson Consult Reason/Comments: right lower quad abd pain-patient known to you. Do you want consulting provider notified?: Yes 12/03/21 09:28 Consult Physician Stat Consulting Provider: Abigail Melo Consult Reason/Comments: Appendicitis with abscess Do you want consulting provider notified?: Yes Primary care physician: [facility] Course: Patient is a 66-year-old female with a past medical history of asthma, unspecified connective tissue disorder who was sent to the ED by her PCP for a CT abdomen. Patient saw her PCP today because she has been having abdominal pain ongoing for 3-4 days. Patient says that the pain is mainly in her right lower quadrant and radiates across the lower abdomen. Patient states that the pain currently is a 4 out of 10. She describes it as a crampy. She reports that it is worse with movement. Patient was given Dilaudid once in the ED after which she reports some improvement. Patient states that she has a low appetite. She denies any diarrhea or constipation or nausea or vomiting. She also denies any fever or chills. In the ED patient's vital signs are stable. Her labs showed elevated WBC count. Patient's CT abdomen and pelvis showed inflammation in the cecum and ascending colon and appendix could not be well visualized. Surgery traffic control signaler was contacted and recommended admission to medical service. Patient was started on Zosyn IV. General surgery was consulted along with infectious disease. She underwent percutaneous I&D of the abscess related to ruptured appendicitis on CT. Wound culture grew E. coli, group D enterococcus and beta-hemolytic strep. Infectious disease recommended IV Zosyn on discharge. PICC line was arranged for 12/06/2021. CHRISTINA drain will remain in place. General surgery recommended repeat computed tomography scan which was pending at the time of this note. Case management was on board to arrange for IV antibiotics at home. Patient is advised follow-up with her PCP within 1-2 days of discharge. Follow-up with general surgery Dr. Kennedy within 1 week of discharge. General: [non toxic], [no distress], [appears at stated age] Derm: [warm], [dry] Head: [atraumatic], [normocephalic], [symmetric] Eyes: [EOMI], [no lid lag], [anicteric sclera] Mouth: [no lip lesion], [mucus membranes moist] Cardiovascular: [S1S2 reg], [no murmur] Lungs: [Decreased breath sounds bilateral], [no rhonchi, no rales] , [no accessory muscle use] Abdominal: [soft], [tenderness to palpation in the right lower quadrant with deep palpation], [CHRISTINA draining serosanguineous fluid], [positive bowel sounds] Ext: [no gross muscle atrophy], [no edema], [no contractures] Neuro: [no focal neuro deficits] Psych: [Alert], [oriented], [appropriate affect] Discharge diagnosis: Sepsis likely related to ruptured appendicitis with abscess formation Asthma, stable Unspecified connective tissue disorder Obesity Resolved: Hypokalemia, BRYSON This complex discharge took about 45 minute to complete. Pertinent Studies: CT abdomen and pelvis Procedures: Percutaneous drainage of abdominal abscess by IR Patient Condition at Discharge: Stable Plan - Discharge Summary Discharge Rx Participant: No New Discharge Prescriptions: No Action Montelukast Sodium [Singulair] 10 mg PO HS Fluticasone Propion/Salmeterol [Advair 100-50 Diskus] 1 puff INHALATION RT- DAILY Albuterol Sulfate [Proair Hfa] 2 puff INHALATION RT-Q6H PRN PRN Reason: Shortness Of Breath Multivitamins, Thera [Multivitamin] 1 tab PO DAILY Aspirin 325 mg PO DAILY Hydroxychloroquine Sulfate [Plaquenil] 200 mg PO DAILY Cetirizine HCl [Zyrtec] 10 mg PO DAILY Calcium Carbonate [Calcium] 600 mg PO DAILY Cholecalciferol [Vitamin D3 (10 Mcg = 400 Iu)] 10 mcg PO Q72H Meclizine [Antivert] 12.5 mg PO BID PRN PRN Reason: DIZZINESS Discharge Medication List Albuterol Sulfate [Proair Hfa] 2 puff INHALATION RT-Q6H PRN 07/02/14 [History] Fluticasone Propion/Salmeterol [Advair 100-50 Diskus] 1 puff INHALATION RT-DAILY 07/02/14 [History] Montelukast Sodium [Singulair] 10 mg PO HS 07/02/14 [History] Aspirin 325 mg PO DAILY 08/11/15 [History] Cetirizine HCl [Zyrtec] 10 mg PO DAILY 08/11/15 [History] Hydroxychloroquine Sulfate [Plaquenil] 200 mg PO DAILY 08/11/15 [History] Multivitamins, Thera [Multivitamin] 1 tab PO DAILY 08/11/15 [History] Calcium Carbonate [Calcium] 600 mg PO DAILY 11/29/21 [History] Cholecalciferol [Vitamin D3 (10 Mcg = 400 Iu)] 10 mcg PO Q72H 11/29/21 [History] Meclizine [Antivert] 12.5 mg PO BID PRN 11/29/21 [History] Follow up Appointment(s)/Referral(s): Lata DIALLO [NON-STAFF] - Samira Mathews Senior [NON-STAFF] - 12/07/21 Iker Pandey [Primary Care Provider] - 1-2 days
[2021-12-06 12:05] LABS: Basophils # (A) 0.1 k/uL (0-0.2); Basophils % (A) 1 %; Eosinophils # (A) 0.1 k/uL (0-0.7); Eosinophils % (A) 1 %; HGB 10.7 gm/dL (11.4-16.0); Hypochromasia Moderate; Lymphocytes # (A) 1.6 k/uL (1.0-4.8); Lymphocytes % (A) 11 %; MCH 26.6 pg (25.0-35.0); MCHC 30.6 g/dL (31.0-37.0); MCV 87.1 fL (80.0-100.0); Mean Platelet Volume 8.2; Monocytes # (A) 0.4 k/uL (0-1.0); Monocytes % (A) 3 %; Neutrophils # (A) 11.9 k/uL (1.3-7.7); Neutrophils % (A) 82 %; Platelet Count 368 k/uL (150-450); RBC 4.02 m/uL (3.80-5.40); RDW 14.1 % (11.5-15.5); WBC 14.5 k/uL (3.8-10.6)
[2021-12-06 12:55] LABS: African American GFR (CKD) >90 (>60 ml/min/1.73 sqM); Anion Gap 9 mmol/L; Blood Urea Nitrogen 6 mg/dL (7-17); Calcium 8.6 mg/dL (8.4-10.2); Carbon Dioxide 24 mmol/L (22-30); Chloride 109 mmol/L (98-107); Glucose 100 mg/dL (74-99); Non-African American GFR(CKD) >90 (>60 ml/min/1.73 sqM); Potassium 3.4 mmol/L (3.5-5.1); Sodium 142 mmol/L (137-145)
--- NOTE | 2021-12-06 20:18 | CT ---
EXAMINATION TYPE: CT abdomen pelvis w con DATE OF EXAM: 12/06/2021 COMPARISON: 12/02/2021 HISTORY: follow up abscess CT DLP: 1147.8 mGycm Automated exposure control for dose reduction was used. TECHNIQUE: Helical acquisition of images was performed from the lung bases through the pelvis. CONTRAST: Performed with Oral Contrast and with IV Contrast, patient injected with 100ml mL of Isovue 300. FINDINGS: LUNG BASES: Moderate right greater than left pleural effusions with adjacent opacities. LIVER/GB: No significant abnormality is appreciated. PANCREAS: No significant abnormality is seen. SPLEEN: No significant abnormality is seen. ADRENALS: No significant abnormality is seen. KIDNEYS: No acute abnormality is seen. Stable 4.8 cm left renal cyst. FREE AIR: No free air is visualized. RETROPERITONEAL ADENOPATHY: None visualized REPRODUCTIVE ORGANS: No significant abnormality is seen URINARY BLADDER: No significant abnormality is seen. PELVIC ADENOPATHY: None visualized. OSSEOUS STRUCTURES: No significant abnormality is seen. BOWEL: There is interval placement of right lower quadrant drain with near complete resolution of pr evious fluid collection. There is minimal residual with fat stranding. No bowel obstruction or signif icant free air. Mild subsidence emphysema about the anterior wall subcutaneous soft tissue seen. The appendix is not confidently identified. OTHER: None IMPRESSION: NEAR COMPLETE RESOLUTION OF PREVIOUS RIGHT LOWER QUADRANT ABSCESS STATUS POST DRAIN PLACEMENT. NO SIG NIFICANT RESIDUAL. INTERVAL MODERATE BILATERAL PLEURAL EFFUSIONS WITH ADJACENT ATELECTASIS.
[2021-12-06 23:49] VITALS: BP 118/77; PULSE 65; TEMP 98
--- NOTE | 2021-12-07 10:29 | IR ---
EXAMINATION TYPE: IR cvc insert >=5 years DATE OF EXAM: 12/06/2021 COMPARISON: NONE CLINICAL HISTORY: Infection Needs long-term intravenous access for antibiotics. PROCEDURE: Hand hygiene obtained with soap and water and alcohol-based hand rub. After informed consent, the skin overlying the right basilic vein was localized with ultrasound and n oted to be compressible and patent. An ultrasound image was obtained and submitted on the patient's chart. The overlying skin was prepped and draped and Lidocaine was used for local anesthesia. A ski n fabienne was made with a scalpel. Access was gained to the vein under ultrasound guidance with a 21 ga uge needle and a 0.018 inch wire was advanced. Access site was dilated with Peel-Away sheath and cat heter tailored to the appropriate length and advanced such that the distal tip is at the cavoatrial j unction. Spot image was obtained verifying placement. Catheter was fixed to the skin and a sterile dressing was placed following hemostasis. Catheter was aspirated and flushed with saline. Patient w as discharged in stable condition without complication. Maximal barrier technique is utilized. Ultra sound image is documented on the chart. Ultrasound used with sterile technique. Fluoro time and fluoroscopic images submitted to document procedure: 15 intraoperative C-arm images, 0.1 minutes fluoroscopy time IMPRESSION: STATUS POST ULTRASOUND AND FLUOROSCOPIC GUIDED PICC LINE PLACEMENT, READY FOR USE. THIS PROCEDURE WAS PERFORMED BY THE UNDERSIGNED.
== END 2021-12-06 21:55 | disposition home health service (06) | DRG 871 ==
LOC: EC 12:32 → 6NMEDSUR 16:42 → OBSVTOIN 11-30 09:01
PROVIDERS: ADMIT Internal Medicine; ATTEND Internal Medicine
PROC: 0W9F30Z Drainage of Abdominal Wall with Drainage Device, Percutaneous Approach (ICD-10-PCS; principal; 2021-12-03)
PROC: 02HV33Z Insertion of Infusion Device into Superior Vena Cava, Percutaneous Approach (ICD-10-PCS; 2021-12-06)
DX: A40.8 Other streptococcal sepsis (principal); K35.33 Acute appendicitis with perforation, localized peritonitis, and gangrene, with abscess; N17.9 Acute kidney failure, unspecified; A41.51 Sepsis due to Escherichia coli [E. coli]; A41.81 Sepsis due to Enterococcus; J45.909 Unspecified asthma, uncomplicated; R73.9 Hyperglycemia, unspecified; E87.6 Hypokalemia; K21.9 Gastro-esophageal reflux disease without esophagitis; H91.92 Unspecified hearing loss, left ear; M19.90 Unspecified osteoarthritis, unspecified site; E66.9 Obesity, unspecified; Z68.32 Body mass index [BMI] 32.0-32.9, adult; Z79.82 Long term (current) use of aspirin; Z79.51 Long term (current) use of inhaled steroids; Z79.899 Other long term (current) drug therapy; Z87.01 Personal history of pneumonia (recurrent); Z71.3 Dietary counseling and surveillance; Z88.2 Allergy status to sulfonamides; Z81.8 Family history of other mental and behavioral disorders; Z82.61 Family history of arthritis; Z80.49 Family history of malignant neoplasm of other genital organs; Z80.8 Family history of malignant neoplasm of other organs or systems; Z82.49 Family history of ischemic heart disease and other diseases of the circulatory system
CPT/HCPCS: 36415; 36573; 74176; 74177; 75989; 80048; 80053; 81001; 82150; 83605; 83690; 83735; 84484; 85025; 85610; 85730; 87040; 87070; 87075; 87077; 87086; 87186; 87205; 94640; 96361; 96365; 96375; 99285

== ENCOUNTER → 2023-02-07 | Outpatient (CLI) | payer MEDICARE ==
--- NOTE | 2023-02-10 09:21 | MM ---
Reason for Exam: Screening (asymptomatic). Last mammogram was performed 1 year(s) and 3 month(s) ago. Patient History: Menarche at age 11. Patient has no children. Postmenopausal. 07/07/2009, Benign Core Biopsy on the left side. Risk Values: Chaparrita 5 year model risk: 2.2%. NCI Lifetime model risk: 7.2%. Prior Study Comparison: 08/17/2018 Bilateral Screening Mammogram, [facility]. 06/27/2020 Bilateral Screening Mammogram, [facility]. 11/07/2021 Bilateral MG 3D screening mammo w/cad, [facility]. Tissue Density: There are scattered fibroglandular densities. Findings: Analyzed By CAD. There is no suspicious group of microcalcifications or new suspicious mass in either breast. Biopsy clip within left breast. Benign calcifications within both breasts. Overall Assessment: Benign, BI-RAD 2 Management: Screening Mammogram of both breasts in 1 year. A clinical breast exam by your physician is recommended on an annual basis and results should be correlated with mammographic findings. Note on Chaparrita scores and lifetime risk: 1. A Chaparrita score greater than 3% is considered moderate risk. If this is the case, consider specialist referral to assess eligibility for a risk reducing agent. If overall lifetime risk for the development of breast cancer is 20% or higher, the patient may qualify for future screening with alternating mammogram and breast MRI. Electronically signed and approved by: Timothy Pyle D.O.
== END | disposition home or self-care (01) ==
LOC: RADMAMWWP 16:00
PROVIDERS: ATTEND Family Medicine
DX: Z12.31 Encounter for screening mammogram for malignant neoplasm of breast (principal); Z78.0 Asymptomatic menopausal state
CPT/HCPCS: 77063; 77067

== ENCOUNTER → 2024-03-18 | Outpatient (CLI) | payer MEDICARE ==
--- NOTE | 2024-03-21 16:42 | MM ---
Reason for Exam: Screening (asymptomatic). Last mammogram was performed 1 year(s) and 1 month(s) ago. Patient History: Menarche at age 11. Patient has no children. Postmenopausal. 07/07/2009, Benign Core Biopsy on the left side. Risk Values: Chaparrita 5 year model risk: 2.3%. NCI Lifetime model risk: 6.9%. Prior Study Comparison: 06/27/2020 Bilateral Screening Mammogram, [facility]. 11/07/2021 Bilateral MG 3D screening mammo w/cad, [facility]. 02/07/2023 Bilateral MG 3D screening mammo w/cad, [facility]. Tissue Density: There are scattered areas of fibroglandular density. Findings: Analyzed By CAD. The pattern is symmetrical. No significant interval change is evident. Benign scattered punctate calcifications are present bilaterally No suspicious groups of microcalcifications, spiculated or lobular masses, architectural distortion or other secondary signs of malignancy are mammographically apparent. Overall Assessment: Benign, BI-RAD 2 Management: Screening Mammogram of both breasts in 1 year. A negative mammogram report should not preclude additional follow up of suspicious palpable abnormalities. Patient should continue monthly self breast exam. A clinical breast exam by your physician is recommended on an annual basis and results should be correlated with mammographic findings. Note on Chaparrita scores and lifetime risk: 1. A Chaparrita score greater than 3% is considered moderate risk. If this is the case, consider specialist referral to assess eligibility for a risk reducing agent. 2. If overall lifetime risk for the development of breast cancer is 20% or higher, the patient may qualify for future screening with alternating mammogram and breast MRI. [facility], , 03/21/2024 4:38 PM. Electronically signed and approved by: Gutierrez Constantino D.O. Radiologis
== END | disposition home or self-care (01) ==
LOC: RADMAMWWP 15:18
PROVIDERS: ATTEND Family Medicine
DX: Z12.31 Encounter for screening mammogram for malignant neoplasm of breast (principal); Z78.0 Asymptomatic menopausal state; R92.323 Mammographic fibroglandular density, bilateral breasts
CPT/HCPCS: 77063; 77067

== ENCOUNTER → 2024-04-07 | Day surgery (SDC) | payer MEDICARE ==
[~2024-04-07] MED LIST changes: -DEXAMETHASONE SOD PHOSPHATE 10 MG/ML 1 ML VIAL IV ONE; -HYDROmorphone 0.5 MG/0.5 ML SYRINGE IVP PRN; -LACTATED RINGERS 1,000 ML IV SCH; +LIDOCAINE 1% (10MG/ML) FOR IV START INTRADERMA PRN; -LIDOCAINE 1% 20 ML VIAL (10MG/ML) FOR IV START INTRADERMA PRN; +LIDOCAINE 1% INJ 10MG/ML (20 ML MDV) ONE; -ONDANSETRON 4 MG/2 ML VIAL IVP ONE; +PROPOFOL 10 MG/ML 20 ML VIAL IV ONE
[2024-04-07 14:21] VITALS: TEMP 98.1
[2024-04-07] MEDS: LACTATED RINGERS 1,000 ML IV SCH (14:27)
[2024-04-07] MEDS: IV FLUID CONTINUATION 1,000 ML IV ONE (14:28)
--- NOTE | 2024-04-07 15:31 | P.PCN ---
Date of Procedure: 04/07/24 Procedure(s) Performed: BRIEF HISTORY: Patient is a 68-year-old pleasant white female scheduled for an elective colonoscopy as a part of screen for colon cancer/positive Cologuard. PROCEDURE PERFORMED: Colonoscopy with snare snare polypectomy. PREOPERATIVE DIAGNOSIS: Screening for colon cancer/positive Cologuard. IV sedation per Anesthesia. PROCEDURE: After informed consent was obtained, the patient, was brought into the endoscopy unit. IV sedation was administered by Anesthesia under continuous monitoring. Digital rectal examination was normal. Initially the Olympus CF-160 flexible video colonoscope was then inserted in the rectum, gradually advanced into the cecum without any difficulty. Careful examination was performed as the scope was gradually being withdrawn. Ileocecal valve and the appendiceal orifice were visualized and appeared normal. Prep was excellent. Mucosa of the cecum, appeared normal. In the ascending colon there was a 1 cm flat polyp was removed by hot snare polypectomy. The rest of the ascending colon, transverse colon, descending colon, sigmoid colon, and rectum appeared normal. Scattered sigmoid diverticulosis retroflexion was performed in the rectum and no lesions were seen. The patient tolerated the procedure well. IMPRESSION: 1 cm flat ascending colon polyp status post snare polypectomy Scattered sigmoid diverticulosis RECOMMENDATIONS: Findings of this examination were discussed with the patient as well as her family. She was advised to follow-up with the biopsy results. If the biopsy reveals adenoma she can have repeat colonoscopy in 3 years..
[2024-04-07 15:51] VITALS: BP 116/59; PULSE 78; RESP 14
== END ==
LOC: ORWHC2ENDO 12:50
PROVIDERS: ATTEND Internal Medicine Gastroenterology
DX: D12.2 Benign neoplasm of ascending colon (principal); K57.30 Diverticulosis of large intestine without perforation or abscess without bleeding; J45.909 Unspecified asthma, uncomplicated; K21.9 Gastro-esophageal reflux disease without esophagitis; F17.200 Nicotine dependence, unspecified, uncomplicated; Z88.2 Allergy status to sulfonamides; Z79.899 Other long term (current) drug therapy; Z79.51 Long term (current) use of inhaled steroids; Z98.51 Tubal ligation status; Z98.890 Other specified postprocedural states
CPT/HCPCS: 88305; 45385; J2003; J2704